=== PATIENT | female | born 1950 | race Caucasian/White ===

== ENCOUNTER 2016-11-21 16:31 | Observation (INO) | payer OTHER ==
[~2016-11-21] VITALS: Ht 152.4 cm; Wt 70.5 kg
[~2016-11-21 16:31] MED LIST: ACTOS30 MG PO; ACTOS45 MG PO; ADVIL,NUPRIN,M200 MG PO; ASPIR 8181 M1 PO; ASPIR-LOW81 M1 PO; ASPIRIN E.C.81 M1 PO; ATORVASTATIN CA80 MG PO; Advair HFA 115/21 IH; Aspirin E.C. PO; CEFTIN500 MG PO; CLEOCIN300 MG PO; CLINDAMYCIN HC300 MG PO; CLOTRIMAZOLE-BE15 GM TP; Diabeta,Micronase PO; FENOFIBRATE160 M1 PO; FLONASE16 G1 BOTH NARES; FLUCONAZOLE200 MG PO; FUROSEMIDE20 MG PO; Furosemide PO; GLUCOVANCE 51 TABLET PO; GLYBURIDE-METF1 EAC3 PO; HUMULIN 70100 UNIT/2 SC; HYCODAN SYRUP480 ML PO; HYDROCODON-ACE1 EAC7 PO; INSULIN SYRING1 EA11 SC; LEVEMIR FL100 UNIT/1 SC; LEVEMIR100 UNIT/2 SC; LIPITOR80 MG PO; LO-DOSE ASPIRIN81 M1 PO; LOFIBRA,TRIGLI160 MG PO; LOPRESSOR25 MG PO; LORATADINE10 M2 PO; LOW DOSE ASPIRI81 M1 PO; Lipitor PO; Lopressor PO; METOPROLOL TART25 MG PO; NICOTINE PATCH1 EAC2 TD; NORVASC5 MG PO; NOVOLIN,HU100 UNITS/ SC; NOVOLOG MI100 UNIT/M SC; NOVOLOG PE100 UNITS/ SC; PIOGLITAZONE HC30 MG PO; PROTONIX40 MG PO; TYLENOL EXTRA500 MG PO; ZANTAC75 MG PO; ZESTRIL,PRINIVI10 M1 PO; ZITHROMAX Z-PA250 MG PO; ZOFRAN4 MG PO; [UNRECOGNIZED DRUG - CODE] PO
[2016-11-21 17:14] LABS: HEMATOCRIT 31.7 % (36.0-46.0); MCH 27.2 PG (29.0-34.0); MCHC 31.9 G/DL (30.0-36.0); MCV 85.2 FL (83-99); MEAN PLAT.VOLUME 10.3 uM^3 (9.5-12.4); PLATELET COUNT 213 K/uL (156-360); RBC DIS.WIDTH-CV 14.4 % (11.8-14.6); RED BLOOD COUNT 3.72 M/uL (3.80-5.20); WHITE BLOOD COUNT 7.5 K/uL (4.1-10.2)
[2016-11-21 17:39] LABS: CHLORIDE 107 mEq/L (99-109); POTASSIUM 3.9 mEq/L (3.7-5.4); SODIUM 145 mEq/L (136-147)
[2016-11-21 17:41] LABS: GLUCOSE 114 mg/dL (70-99)
[2016-11-21 17:42] LABS: ANION GAP 10 MEQ/L (2-14)
[2016-11-21 17:45] LABS: GFR ESTIMATE (CALCULATED) 44 mL/min/; UREA NITROGEN (BUN) 27 mg/dL (9-23)
[2016-11-21 17:49] LABS: TROP-I INTERPRETATION NEGATIVE; TROPONIN-I 0.01 ng/mL (0.0-0.30)
[2016-11-21 20:16] LABS: ADD MIUA? YES; BILIRUBIN NEGATIVE; BLOOD SMALL; COLOR STRAW ((YELLOW)); GLUCOSE (STRIP) NEGATIVE; KETONES NEGATIVE; LEUKOCYTES MODERATE; NITRITE NEGATIVE; PROTEIN (STRIP) 100; SPECIFIC GRAVITY 1.009 (1.000-1.030); UROBILINOGEN 0.2 MG/DL (0.2-1.0)
[2016-11-21 20:34] LABS: BACTERIA NONE SEEN /HPF; EPITHELIAL CELLS RARE /HPF; MUCUS NONE SEEN /LPF; RED BLOOD CELLS 0-5 /HPF (0-5); UCUL ADDED? NO
[2016-11-21] MEDS ORDERED: METFORMIN HCL500 MG PO (22:46)
[2016-11-21] MEDS ORDERED: HUMULIN N100 UNITS/ SC (22:46)
[2016-11-22 00:43] VITALS: BP 169/70
[2016-11-22 01:01] LABS: POINT-OF-CARE METER ID UU13113700
[2016-11-22 01:08] LABS: TROP-I INTERPRETATION NEGATIVE; TROPONIN-I 0.01 ng/mL (0.0-0.30)
[2016-11-22 03:52] VITALS: BP 199/89
[2016-11-22 04:47] VITALS: BP 161/72
[2016-11-22 07:54] LABS: TROP-I INTERPRETATION NEGATIVE; TROPONIN-I 0.02 ng/mL (0.0-0.30)
[2016-11-22 09:41] VITALS: BP 178/81
[2016-11-22 12:17] VITALS: BP 143/67
[2016-11-22] MEDS ORDERED: FUROSEMIDE40 MG PO (13:39)
[2016-11-22] MEDS ORDERED: CEFTIN500 MG PO (13:39)
== END 2016-11-22 14:40 | disposition home or self-care (01) ==
LOC: EME 16:31 → EDOF 22:40 → 5WEST 23:22
PROVIDERS: Hospitalist; Nurse Practitioner Family; Physician Assistant
DX: R07.9 Chest pain, unspecified (principal); L03.116 Cellulitis of left lower limb; R60.0 Localized edema; I25.10 Atherosclerotic heart disease of native coronary artery without angina pectoris; Z95.1 Presence of aortocoronary bypass graft; E11.9 Type 2 diabetes mellitus without complications; I50.30 Unspecified diastolic (congestive) heart failure; N28.9 Disorder of kidney and ureter, unspecified; F17.210 Nicotine dependence, cigarettes, uncomplicated; Z79.4 Long term (current) use of insulin; Z79.82 Long term (current) use of aspirin
CPT/HCPCS: 71020; 80048; 81003; 82948; 83605; 83880; 84484; 85027; 87040; 93005; 93970; 99281; 99285; G0378; J1650; J1815; J1940; J7030

== ENCOUNTER 2017-01-18 16:43 | Emergency (ER) | payer OTHER ==
[~2017-01-18] VITALS: Ht 162.6 cm; Wt 65.0 kg
[~2017-01-18 16:43] MED LIST changes: +FUROSEMIDE40 MG PO; +HUMULIN N100 UNITS/ SC; +METFORMIN HCL500 MG PO
[2017-01-18 17:42] LABS: EOSINOPHIL (%) 0.5 % (0-5); HEMATOCRIT 30.2 % (36.0-46.0); IMMATURE GRANULOCYTE (%) 0.2 % (0.0-0.7); INSTRUMENT ABS NEUTROPHIL CT 4.4 K/uL; LYMPHOCYTE COUNT 1.2 K/uL (1.0-2.8); MCH 27.1 PG (29.0-34.0); MCHC 30.8 G/DL (30.0-36.0); MONOCYTE (%) 10.6 % (3-12); MONOCYTE COUNT 0.7 K/uL (0-0.8); NEUTROPHIL COUNT 4.4 K/uL (1.8-6.4); PLATELET COUNT 246 K/uL (156-360); RBC DIS.WIDTH-CV 15.9 % (11.8-14.6); RBC DIS.WIDTH-SD 51.5 % (39-53); RED BLOOD COUNT 3.43 M/uL (3.80-5.20); WHITE BLOOD COUNT 6.3 K/uL (4.1-10.2)
[2017-01-18 17:54] LABS: CHLORIDE 106 mEq/L (99-109); POTASSIUM 4.1 mEq/L (3.7-5.4); SODIUM 146 mEq/L (136-147)
[2017-01-18 17:56] LABS: GLUCOSE 162 mg/dL (70-99)
[2017-01-18 17:57] LABS: ANION GAP 11 MEQ/L (2-14)
[2017-01-18 17:58] LABS: TOTAL BILIRUBIN 0.6 mg/dL (0.0-1.0)
[2017-01-18 18:00] LABS: ALKALINE PHOSPHATASE 74 IU/L (3-129); GFR ESTIMATE (CALCULATED) 40 mL/min/
[2017-01-18 18:01] LABS: UREA NITROGEN (BUN) 45 mg/dL (9-23)
[2017-01-18 18:02] LABS: DIRECT BILIRUBIN 0.4 mg/dL (0.0-0.3)
[2017-01-18 18:03] LABS: LIPASE 58 U/L (1.0-51.0)
[2017-01-18] MEDS ORDERED: CLEOCIN300 MG PO (21:04)
[2017-01-18 21:58] VITALS: BP 169/74
== END 2017-01-18 22:03 | disposition home or self-care (01) ==
LOC: EME 16:43
PROVIDERS: Emergency Medicine
DX: L03.311 Cellulitis of abdominal wall (principal); E11.9 Type 2 diabetes mellitus without complications; E78.5 Hyperlipidemia, unspecified; I10 Essential (primary) hypertension; I25.2 Old myocardial infarction; Z95.1 Presence of aortocoronary bypass graft; Z79.84 Long term (current) use of oral hypoglycemic drugs; Z79.82 Long term (current) use of aspirin; Z79.4 Long term (current) use of insulin; F17.200 Nicotine dependence, unspecified, uncomplicated
CPT/HCPCS: 74177; 80048; 80076; 83605; 83690; 85025; 87040; 99281; 99285; J2405; J2543; J7030

== ENCOUNTER 2017-01-28 00:48 | Inpatient (IN) | payer OTHER ==
[~2017-01-28] VITALS: Ht 152.4 cm; Wt 66.0 kg
[2017-01-28 01:25] LABS: EOSINOPHIL (%) 1.1 % (0-5); EOSINOPHIL COUNT 0.1 K/uL (0-0.3); HEMATOCRIT 28.3 % (36.0-46.0); IMMATURE GRANULOCYTE (%) 0.2 % (0.0-0.7); INSTRUMENT ABS NEUTROPHIL CT 6.6 K/uL; LYMPHOCYTE COUNT 1.1 K/uL (1.0-2.8); MCH 26.8 PG (29.0-34.0); MCHC 31.1 G/DL (30.0-36.0); MCV 86.3 FL (83-99); MEAN PLAT.VOLUME 11.1 uM^3 (9.5-12.4); MONOCYTE (%) 11.4 % (3-12); NEUTROPHIL (%) 74.8 % (45-76); NEUTROPHIL COUNT 6.6 K/uL (1.8-6.4); PLATELET COUNT 229 K/uL (156-360); RBC DIS.WIDTH-SD 53.2 % (39-53); RED BLOOD COUNT 3.28 M/uL (3.80-5.20); WHITE BLOOD COUNT 8.9 K/uL (4.1-10.2)
[2017-01-28 01:33] LABS: CHLORIDE 105 mEq/L (99-109); SODIUM 142 mEq/L (136-147)
[2017-01-28 01:35] LABS: GLUCOSE 51 mg/dL (70-99)
[2017-01-28 01:36] LABS: ANION GAP 13 MEQ/L (2-14)
[2017-01-28 01:39] LABS: GFR ESTIMATE (CALCULATED) 21 mL/min/
[2017-01-28 01:40] LABS: UREA NITROGEN (BUN) 51 mg/dL (9-23)
[2017-01-28 01:43] LABS: TROP-I INTERPRETATION NEGATIVE; TROPONIN-I 0.04 ng/mL (0.0-0.30)
[2017-01-28 08:20] VITALS: BP 128/76
[2017-01-28 13:33] VITALS: BP 124/78
[2017-01-28 15:53] VITALS: BP 142/68
[2017-01-28 19:00] VITALS: BP 147/69
[2017-01-28 22:48] VITALS: BP 146/58
[2017-01-29] VITALS (7 sets, daily range): BP systolic 110–150; BP diastolic 59–70
[2017-01-29 08:57] LABS: EOSINOPHIL (%) 1.1 % (0-5); EOSINOPHIL COUNT 0.1 K/uL (0-0.3); HEMATOCRIT 30.7 % (36.0-46.0); IMMATURE GRANULOCYTE (%) 0.4 % (0.0-0.7); INSTRUMENT ABS NEUTROPHIL CT 5.3 K/uL; LYMPHOCYTE COUNT 1.1 K/uL (1.0-2.8); MCHC 31.3 G/DL (30.0-36.0); MCV 86.2 FL (83-99); MEAN PLAT.VOLUME 11.5 uM^3 (9.5-12.4); MONOCYTE (%) 12.6 % (3-12); NEUTROPHIL (%) 70.4 % (45-76); NEUTROPHIL COUNT 5.3 K/uL (1.8-6.4); PLATELET COUNT 208 K/uL (156-360); RBC DIS.WIDTH-CV 16.8 % (11.8-14.6); RBC DIS.WIDTH-SD 52.9 % (39-53); RED BLOOD COUNT 3.56 M/uL (3.80-5.20); WHITE BLOOD COUNT 7.6 K/uL (4.1-10.2)
[2017-01-29 09:11] LABS: ANION GAP 10 MEQ/L (2-14); CHLORIDE 99 MEQ/L (99-109); GFR ESTIMATE (CALCULATED) 22 mL/min/; POTASSIUM 4.7 MEQ/L (3.7-5.4); SAMPLE HEMOLYSIS CHECK 0; SAMPLE ICTERIC CHECK 0; SAMPLE LIPEMIA CHECK 0; SODIUM 138 MEQ/L (136-147); UREA NITROGEN (BUN) 50 mg/dL (9-23)
[2017-01-29 09:17] LABS: GLUCOSE 111 mg/dL (70-99)
[2017-01-29] MEDS ORDERED: FUROSEMIDE20 MG PO (11:36)
[2017-01-29] MEDS ORDERED: BACTRIM,SEPT1 TABLET PO (11:38)
[2017-01-29] MEDS ORDERED: OINTMENT (11:38)
[2017-01-29] MEDS ORDERED: BACTROBAN OINTM22 GM TP (11:40)
[2017-01-30 03:24] VITALS: BP 131/67
[2017-01-30 07:00] VITALS: BP 128/76
[2017-01-30 08:47] LABS: ANION GAP 8 MEQ/L (2-14); CHLORIDE 101 MEQ/L (99-109); GFR ESTIMATE (CALCULATED) 21 mL/min/; GLUCOSE 92 mg/dL (70-99); HDL CHOLESTEROL 17 MG/DL (Desirable>=50); LDL CHOLESTEROL 22 mg/dL (Desirable<100); NON-HDL CHOLESTEROL 35 mg/dL (Desirable<160); POTASSIUM 5.6 MEQ/L (3.7-5.4); SAMPLE HEMOLYSIS CHECK 0; SAMPLE ICTERIC CHECK 0; SAMPLE LIPEMIA CHECK 0; SODIUM 139 MEQ/L (136-147); TOTAL CHOLESTEROL 52 mg/dL (Desirable<200); TRIGLYCERIDES 67 MG/DL (Normal: <150); UREA NITROGEN (BUN) 60 mg/dL (9-23)
[2017-01-30 11:27] VITALS: BP 131/59
[2017-01-30 15:39] VITALS: BP 150/64
[2017-01-30 17:23] LABS: POINT-OF-CARE METER ID UU13113725
[2017-01-30 19:16] VITALS: BP 154/67
[2017-01-30 22:43] VITALS: BP 157/75
[2017-01-31 03:26] VITALS: BP 162/74
[2017-01-31 07:28] VITALS: BP 191/75
[2017-01-31 07:47] LABS: ANION GAP 8 MEQ/L (2-14); CHLORIDE 101 MEQ/L (99-109); GFR ESTIMATE (CALCULATED) 24 mL/min/; GLUCOSE 82 mg/dL (70-99); POTASSIUM 4.3 MEQ/L (3.7-5.4); SAMPLE HEMOLYSIS CHECK 0; SAMPLE ICTERIC CHECK 0; SAMPLE LIPEMIA CHECK 0; SODIUM 142 MEQ/L (136-147); UREA NITROGEN (BUN) 54 mg/dL (9-23); URIC ACID 9.7 mg/dL (3.1-9.2)
[2017-01-31 11:40] VITALS: BP 187/74
[2017-01-31 15:34] VITALS: BP 164/71
[2017-01-31 18:08] LABS: D-DIMER ELISA 0.82 mg/L FEU (< 0.57)
[2017-01-31 19:03] VITALS: BP 146/71
[2017-01-31 20:42] LABS: POINT-OF-CARE METER ID UU13113725
[2017-01-31 22:31] VITALS: BP 146/71
[2017-02-01 03:29] VITALS: BP 139/65
[2017-02-01 05:43] LABS: POINT-OF-CARE METER ID UU13113725
[2017-02-01 06:53] VITALS: BP 159/69
[2017-02-01 08:19] LABS: ANION GAP 8 MEQ/L (2-14); CHLORIDE 100 MEQ/L (99-109); GFR ESTIMATE (CALCULATED) 34 mL/min/; GLUCOSE 164 mg/dL (70-99); POTASSIUM 4.4 MEQ/L (3.7-5.4); SAMPLE HEMOLYSIS CHECK 0; SAMPLE ICTERIC CHECK 0; SAMPLE LIPEMIA CHECK 0; SODIUM 142 MEQ/L (136-147); UREA NITROGEN (BUN) 53 mg/dL (9-23)
[2017-02-01 09:45] LABS: LACTATE DEHYDROGENASE 225 IU/L (20-246)
[2017-02-01 10:21] VITALS: BP 130/62
[2017-02-01 15:35] VITALS: BP 164/68
[2017-02-01 16:36] LABS: POINT-OF-CARE METER ID UU13113725
[2017-02-01 18:58] VITALS: BP 127/62
[2017-02-01 22:24] VITALS: BP 148/89
[2017-02-02 02:32] VITALS: BP 179/78
[2017-02-02 06:15] LABS: POINT-OF-CARE METER ID UU13113725
[2017-02-02 06:56] VITALS: BP 178/78
[2017-02-02 07:48] LABS: EOSINOPHIL (%) 2.1 % (0-5); EOSINOPHIL COUNT 0.2 K/uL (0-0.3); HEMATOCRIT 31.8 % (36.0-46.0); IMMATURE GRANULOCYTE (%) 0.4 % (0.0-0.7); INSTRUMENT ABS NEUTROPHIL CT 5.5 K/uL; LYMPHOCYTE COUNT 1.2 K/uL (1.0-2.8); MCH 27.5 PG (29.0-34.0); MCHC 32.4 G/DL (30.0-36.0); MCV 84.8 FL (83-99); MEAN PLAT.VOLUME 10.8 uM^3 (9.5-12.4); MONOCYTE (%) 13.2 % (3-12); MONOCYTE COUNT 1.1 K/uL (0-0.8); NEUTROPHIL (%) 68.7 % (45-76); NEUTROPHIL COUNT 5.5 K/uL (1.8-6.4); PLATELET COUNT 230 K/uL (156-360); RBC DIS.WIDTH-CV 16.9 % (11.8-14.6); RBC DIS.WIDTH-SD 51.8 % (39-53); RED BLOOD COUNT 3.75 M/uL (3.80-5.20)
[2017-02-02 08:03] LABS: INTER. NORMALIZED RATIO 1.2; PROTHROMBIN TIME 12.7 (9.2-11.2); PTT 28.5 (25-32)
[2017-02-02 08:20] LABS: ALKALINE PHOSPHATASE 48 IU/L (3-129); ANION GAP 7 MEQ/L (2-14); CHLORIDE 98 MEQ/L (99-109); GFR ESTIMATE (CALCULATED) 40 mL/min/; GLUCOSE 122 mg/dL (70-99); POTASSIUM 3.8 MEQ/L (3.7-5.4); SAMPLE HEMOLYSIS CHECK 0; SAMPLE ICTERIC CHECK 0; SAMPLE LIPEMIA CHECK 0; SODIUM 141 MEQ/L (136-147); TOTAL BILIRUBIN 0.7 MG/DL (0.0-1.0); UREA NITROGEN (BUN) 45 mg/dL (9-23)
[2017-02-02 08:37] LABS: Estimated Average Glucose 140 mg/dL (70-123); HEMOGLOBIN A1c (GLYCOHEMOGLOB) 6.5 % HGB (Below 5.7)
[2017-02-02 10:44] LABS: TYPE OF FLUID PLEURAL
[2017-02-02 11:09] LABS: BODY FLUID RBC'S 2000 /MM^3 (0-100); BODY FLUID WBC'S 1846 /MM^3 (0-500)
[2017-02-02 11:31] LABS: BODY FLUID EOSINOPHILS 6 % (0-25); MONO RAW COUNT 10; MONONUCLEAR WBC'S 10 %; POLY RAW COUNT 84; POLYNUCLEAR WBC'S 84 % (0-25)
[2017-02-02 12:02] LABS: BODY FLUID LDH 130 IU/L; BODY FLUID PROTEIN < 3.0 G/DL
[2017-02-02 12:07] VITALS: BP 145/64
[2017-02-02 15:15] VITALS: BP 154/69
[2017-02-02 16:45] LABS: POINT-OF-CARE METER ID UU13113725
[2017-02-02 19:04] VITALS: BP 158/62
[2017-02-02 22:43] VITALS: BP 138/64
[2017-02-03 02:40] VITALS: BP 160/54
[2017-02-03 06:55] VITALS: BP 188/81
[2017-02-03 07:14] LABS: EOSINOPHIL COUNT 0.3 K/uL (0-0.3); HEMATOCRIT 32.1 % (36.0-46.0); IMMATURE GRANULOCYTE (%) 0.3 % (0.0-0.7); INSTRUMENT ABS NEUTROPHIL CT 4.4 K/uL; LYMPHOCYTE COUNT 1.5 K/uL (1.0-2.8); MCHC 32.1 G/DL (30.0-36.0); MEAN PLAT.VOLUME 10.7 uM^3 (9.5-12.4); MONOCYTE (%) 13.8 % (3-12); NEUTROPHIL (%) 60.8 % (45-76); NEUTROPHIL COUNT 4.4 K/uL (1.8-6.4); PLATELET COUNT 235 K/uL (156-360); RBC DIS.WIDTH-CV 16.8 % (11.8-14.6); RBC DIS.WIDTH-SD 50.6 % (39-53); RED BLOOD COUNT 3.82 M/uL (3.80-5.20); WHITE BLOOD COUNT 7.2 K/uL (4.1-10.2)
[2017-02-03 07:40] LABS: ALKALINE PHOSPHATASE 44 IU/L (3-129); ANION GAP 7 MEQ/L (2-14); CHLORIDE 98 MEQ/L (99-109); GFR ESTIMATE (CALCULATED) 48 mL/min/; GLUCOSE 141 mg/dL (70-99); POTASSIUM 3.8 MEQ/L (3.7-5.4); SAMPLE HEMOLYSIS CHECK 0; SAMPLE ICTERIC CHECK 0; SAMPLE LIPEMIA CHECK 0; SODIUM 142 MEQ/L (136-147); TOTAL BILIRUBIN 0.7 MG/DL (0.0-1.0); UREA NITROGEN (BUN) 42 mg/dL (9-23)
[2017-02-03 11:39] VITALS: BP 128/61
[2017-02-03 15:21] VITALS: BP 147/69
[2017-02-03 15:48] LABS: POINT-OF-CARE METER ID UU13113725
[2017-02-03 19:16] VITALS: BP 164/72
[2017-02-03 22:20] VITALS: BP 155/72
[2017-02-04 03:23] VITALS: BP 163/67
[2017-02-04 06:51] LABS: EOSINOPHIL (%) 5.4 % (0-5); EOSINOPHIL COUNT 0.4 K/uL (0-0.3); HEMATOCRIT 31.4 % (36.0-46.0); IMMATURE GRANULOCYTE (%) 0.3 % (0.0-0.7); INSTRUMENT ABS NEUTROPHIL CT 4.3 K/uL; LYMPHOCYTE COUNT 1.8 K/uL (1.0-2.8); MCH 27.1 PG (29.0-34.0); MCHC 32.5 G/DL (30.0-36.0); MCV 83.5 FL (83-99); MEAN PLAT.VOLUME 10.8 uM^3 (9.5-12.4); MONOCYTE (%) 12.4 % (3-12); MONOCYTE COUNT 0.9 K/uL (0-0.8); NEUTROPHIL (%) 57.5 % (45-76); NEUTROPHIL COUNT 4.3 K/uL (1.8-6.4); PLATELET COUNT 220 K/uL (156-360); RBC DIS.WIDTH-CV 16.7 % (11.8-14.6); RBC DIS.WIDTH-SD 50.1 % (39-53); RED BLOOD COUNT 3.76 M/uL (3.80-5.20); WHITE BLOOD COUNT 7.4 K/uL (4.1-10.2)
[2017-02-04 07:06] VITALS: BP 166/67
[2017-02-04 07:18] LABS: ANION GAP 9 MEQ/L (2-14); CHLORIDE 98 MEQ/L (99-109); GFR ESTIMATE (CALCULATED) 48 mL/min/; GLUCOSE 115 mg/dL (70-99); POTASSIUM 3.8 MEQ/L (3.7-5.4); SAMPLE HEMOLYSIS CHECK 0; SAMPLE ICTERIC CHECK 0; SAMPLE LIPEMIA CHECK 0; SODIUM 140 MEQ/L (136-147); UREA NITROGEN (BUN) 47 mg/dL (9-23)
[2017-02-04 10:52] LABS: POINT-OF-CARE METER ID UU13113725
[2017-02-04] MEDS ORDERED: DOCUSATE SODIU100 MG PO (11:31)
[2017-02-04] MEDS ORDERED: KETOCONAZOLE60 GM TP (11:35)
[2017-02-04] MEDS ORDERED: METOPROLOL TART25 MG PO (11:35)
[2017-02-04] MEDS ORDERED: ENDOCET 5-3251 EACH PO (11:35)
[2017-02-04] MEDS ORDERED: ZINC OXIDE56.7 GM TP (11:35)
[2017-02-04] MEDS ORDERED: NOVOLOG PE100 UNITS/ SC (11:35)
[2017-02-04] MEDS ORDERED: FUROSEMIDE40 MG PO (11:35)
[2017-02-04] MEDS ORDERED: LISINOPRIL5 MG PO (11:35)
[2017-02-04] MEDS ORDERED: LEVEMIR100 UNIT/2 SC (11:35)
[2017-02-04 12:00] VITALS: BP 137/65
== END 2017-02-04 17:13 | disposition home health service (06) | DRG 682 ==
LOC: EME → EDBD 00:48 → EME 00:48 → 5EAST 03:53 → EDOF 03:53 → 5EAST 07:39
PROVIDERS: Emergency Medicine; Hospitalist; Internal Medicine; Internal Medicine Nephrology; Radiology Diagnostic Radiology
PROC: 0H97XZZ Drainage of Abdomen Skin, External Approach (ICD-10-PCS; principal; 2017-01-29)
PROC: 0W993ZZ Drainage of Right Pleural Cavity, Percutaneous Approach (ICD-10-PCS; 2017-02-02)
DX: N17.9 Acute kidney failure, unspecified (principal); I50.43 Acute on chronic combined systolic (congestive) and diastolic (congestive) heart failure; J96.01 Acute respiratory failure with hypoxia; I25.810 Atherosclerosis of coronary artery bypass graft(s) without angina pectoris; D63.1 Anemia in chronic kidney disease; J90 Pleural effusion, not elsewhere classified; I13.0 Hypertensive heart and chronic kidney disease with heart failure and stage 1 through stage 4 chronic kidney disease, or unspecified chronic kidney disease; E11.40 Type 2 diabetes mellitus with diabetic neuropathy, unspecified; L02.221 Furuncle of abdominal wall; N18.3 Chronic kidney disease, stage 3 (moderate); I73.9 Peripheral vascular disease, unspecified; L02.211 Cutaneous abscess of abdominal wall; E78.5 Hyperlipidemia, unspecified; B37.9 Candidiasis, unspecified; K21.9 Gastro-esophageal reflux disease without esophagitis; R21 Rash and other nonspecific skin eruption; F17.210 Nicotine dependence, cigarettes, uncomplicated; R60.0 Localized edema; I25.10 Atherosclerotic heart disease of native coronary artery without angina pectoris; D63.8 Anemia in other chronic diseases classified elsewhere; E11.42 Type 2 diabetes mellitus with diabetic polyneuropathy; I70.0 Atherosclerosis of aorta; L97.811 Non-pressure chronic ulcer of other part of right lower leg limited to breakdown of skin; E11.22 Type 2 diabetes mellitus with diabetic chronic kidney disease; Z85.42 Personal history of malignant neoplasm of other parts of uterus; Z79.4 Long term (current) use of insulin; I25.2 Old myocardial infarction; Z95.1 Presence of aortocoronary bypass graft; Z79.82 Long term (current) use of aspirin
CPT/HCPCS: 71010; 71020; 76770; 78582; 80048; 80053; 80061; 80069; 81003; 82043; 82570; 82945; 82948; 83036; 83615; 83615 91; 83880; 84100; 84157; 84300; 84484; 84550; 85025; 85379; 85610; 85730; 87070; 87075; 87205; 88108; 88305; 89051; 93005; 93306; 93925; 93970; 94799; 99202; 99281; 99285; A6212; A6260; A9540; A9567; J1644; J1815; J1940; J2405

== ENCOUNTER 2017-04-19 20:57 | Inpatient (IN) | payer OTHER ==
[~2017-04-19] VITALS: Ht 162.6 cm; Wt 65.5 kg
[~2017-04-19 20:57] MED LIST changes: +BACTRIM,SEPT1 TABLET PO; +BACTROBAN OINTM22 GM TP; +DOCUSATE SODIU100 MG PO; +ENDOCET 5-3251 EACH PO; +KETOCONAZOLE60 GM TP; +LISINOPRIL5 MG PO; +OINTMENT; +ZINC OXIDE56.7 GM TP
[2017-04-19 23:32] LABS: HEMATOCRIT 29.6 % (36.0-46.0); MCH 27.8 PG (29.0-34.0); MCHC 33.1 G/DL (30.0-36.0); MCV 84.1 FL (83-99); MEAN PLAT.VOLUME 9.4 uM^3 (9.5-12.4); PLATELET COUNT 174 K/uL (156-360); RBC DIS.WIDTH-CV 14.8 % (11.8-14.6); RBC DIS.WIDTH-SD 45.5 % (39-53); RED BLOOD COUNT 3.52 M/uL (3.80-5.20); WHITE BLOOD COUNT 9.1 K/uL (4.1-10.2)
[2017-04-19 23:41] LABS: CHLORIDE 101 mEq/L (99-109); POTASSIUM 3.8 mEq/L (3.7-5.4); SODIUM 136 mEq/L (136-147)
[2017-04-19 23:42] LABS: GLUCOSE 165 mg/dL (70-99)
[2017-04-19 23:44] LABS: ANION GAP 9 MEQ/L (2-14)
[2017-04-19 23:46] LABS: GFR ESTIMATE (CALCULATED) 53 mL/min/
[2017-04-19 23:47] LABS: UREA NITROGEN (BUN) 26 mg/dL (9-23)
[2017-04-20 00:28] LABS: EOSINOPHIL (%) 0.6 % (0-5); EOSINOPHIL COUNT 0.1 K/uL (0-0.3); IMMATURE GRANULOCYTE (%) 0.3 % (0.0-0.7); LYMPHOCYTE COUNT 1.1 K/uL (1.0-2.8); MONOCYTE (%) 10.5 % (3-12); NEUTROPHIL (%) 76.7 % (45-76)
[2017-04-20] MEDS ORDERED: FUROSEMIDE40 MG PO (00:39)
[2017-04-20] MEDS ORDERED: NOVOLOG PE100 UNITS/ SC (00:40)
[2017-04-20 00:51] LABS: TOTAL BILIRUBIN 0.9 mg/dL (0.0-1.0)
[2017-04-20 00:52] LABS: ALKALINE PHOSPHATASE 125 IU/L (3-129)
[2017-04-20 00:55] LABS: DIRECT BILIRUBIN 0.5 mg/dL (0.0-0.3)
[2017-04-20 00:56] LABS: LIPASE 21 U/L (1.0-51.0)
[2017-04-20 10:52] LABS: POINT-OF-CARE METER ID UU13113702
[2017-04-20 13:59] VITALS: BP 156/72
[2017-04-21 00:01] VITALS: BP 156/84
[2017-04-21 07:06] LABS: HEMATOCRIT 27.4 % (36.0-46.0); MCHC 33.2 G/DL (30.0-36.0); MCV 84.3 FL (83-99); MEAN PLAT.VOLUME 10.3 uM^3 (9.5-12.4); NRBC (%) 0.2 /100 WBC (0-0); PLATELET COUNT 176 K/uL (156-360); RBC DIS.WIDTH-CV 14.8 % (11.8-14.6); RBC DIS.WIDTH-SD 45.7 % (39-53); RED BLOOD COUNT 3.25 M/uL (3.80-5.20)
[2017-04-21 07:19] LABS: POINT-OF-CARE METER ID UU14188625
[2017-04-21 07:34] LABS: ANION GAP 8 MEQ/L (2-14); CHLORIDE 107 MEQ/L (99-109); GFR ESTIMATE (CALCULATED) 53 mL/min/; POTASSIUM 3.6 MEQ/L (3.7-5.4); SAMPLE HEMOLYSIS CHECK 0; SAMPLE ICTERIC CHECK 0; SAMPLE LIPEMIA CHECK 0; SODIUM 140 MEQ/L (136-147); UREA NITROGEN (BUN) 24 mg/dL (9-23)
[2017-04-21 07:39] LABS: GLUCOSE 116 mg/dL (70-99)
[2017-04-21 07:49] VITALS: BP 198/78
[2017-04-21 11:33] LABS: POINT-OF-CARE METER ID UU14188625
[2017-04-21 15:24] VITALS: BP 160/84
[2017-04-21 16:44] LABS: POINT-OF-CARE METER ID UU13113717
[2017-04-21 21:44] LABS: POINT-OF-CARE METER ID UU14174225
[2017-04-21 23:45] VITALS: BP 164/59
[2017-04-22 08:07] VITALS: BP 161/95
[2017-04-22 11:13] LABS: ANION GAP 10 MEQ/L (2-14); CHLORIDE 102 MEQ/L (99-109); GFR ESTIMATE (CALCULATED) 53 mL/min/; GLUCOSE 106 mg/dL (70-99); SAMPLE HEMOLYSIS CHECK 0; SAMPLE ICTERIC CHECK 0; SAMPLE LIPEMIA CHECK 0; SODIUM 138 MEQ/L (136-147); UREA NITROGEN (BUN) 25 mg/dL (9-23)
[2017-04-22 11:14] LABS: POTASSIUM 4.6 MEQ/L (3.7-5.4)
[2017-04-22 15:04] VITALS: BP 163/79
[2017-04-22 21:29] LABS: POINT-OF-CARE METER ID UU14174225
[2017-04-23 00:42] VITALS: BP 175/79
[2017-04-23 07:27] LABS: POINT-OF-CARE METER ID UU14174225
[2017-04-23 07:48] VITALS: BP 228/94
[2017-04-23 09:49] VITALS: BP 191/79
[2017-04-23 12:03] LABS: POINT-OF-CARE METER ID UU14174225
[2017-04-23 12:39] VITALS: BP 191/80
[2017-04-23 15:13] VITALS: BP 142/65
[2017-04-23 16:55] LABS: POINT-OF-CARE METER ID UU14174225
[2017-04-23 21:15] LABS: POINT-OF-CARE METER ID UU14188625
[2017-04-23 23:55] VITALS: BP 156/61
[2017-04-24 07:58] LABS: POINT-OF-CARE METER ID UU14174225
[2017-04-24 08:03] VITALS: BP 175/70
[2017-04-24] MEDS ORDERED: FLUCONAZOLE200 MG PO (08:50)
[2017-04-24] MEDS ORDERED: BACTRIM,SEPT1 TABLET PO (08:50)
[2017-04-24] MEDS ORDERED: CIPRO500 MG PO (08:50)
[2017-04-24] MEDS ORDERED: LISINOPRIL10 MG PO (08:50)
[2017-04-24] MEDS ORDERED: CLONIDINE HCL0.1 MG PO (08:50)
[2017-04-24] MEDS ORDERED: LEVEMIR100 UNIT/2 SC (08:50)
[2017-04-24 08:55] VITALS: BP 188/47
[2017-04-24 12:23] LABS: POINT-OF-CARE METER ID UU14174225
[2017-04-24 12:27] VITALS: BP 170/61
[2017-04-24 13:46] VITALS: BP 137/52
== END 2017-04-24 15:34 | disposition home health service (06) | DRG 603 ==
LOC: EME 20:57 → 5SOUTH 04-20 01:12 → EDOF 04-20 01:12 → 5SOUTH 04-20 13:50
PROVIDERS: Hospitalist; Internal Medicine; Physician Assistant
DX: L03.311 Cellulitis of abdominal wall (principal); L03.116 Cellulitis of left lower limb; L03.115 Cellulitis of right lower limb; L03.314 Cellulitis of groin; L30.4 Erythema intertrigo; M79.3 Panniculitis, unspecified; I13.0 Hypertensive heart and chronic kidney disease with heart failure and stage 1 through stage 4 chronic kidney disease, or unspecified chronic kidney disease; I50.9 Heart failure, unspecified; E11.22 Type 2 diabetes mellitus with diabetic chronic kidney disease; N18.3 Chronic kidney disease, stage 3 (moderate); E78.5 Hyperlipidemia, unspecified; I25.10 Atherosclerotic heart disease of native coronary artery without angina pectoris; F17.210 Nicotine dependence, cigarettes, uncomplicated; J45.909 Unspecified asthma, uncomplicated; K21.9 Gastro-esophageal reflux disease without esophagitis; F31.9 Bipolar disorder, unspecified; E66.9 Obesity, unspecified; Z79.4 Long term (current) use of insulin; Z79.82 Long term (current) use of aspirin; Z85.42 Personal history of malignant neoplasm of other parts of uterus; Z95.1 Presence of aortocoronary bypass graft; I25.2 Old myocardial infarction; Z68.24 Body mass index [BMI] 24.0-24.9, adult
CPT/HCPCS: 74177; 80048; 80076; 80202; 82948; 83605; 83690; 85025; 85027; 87040; 87070; 87075; 87076; 87205; 93005; 99281; 99285; A6260; J0360; J0692; J1644; J1815; J1885; J2270; J2543; J3010; J3370; J7030; J7050

== ENCOUNTER 2017-05-18 14:51 | Inpatient (IN) | payer OTHER ==
[~2017-05-18] VITALS: Ht 152.4 cm; Wt 54.8 kg
[~2017-05-18 14:51] MED LIST changes: +CIPRO500 MG PO; +CLONIDINE HCL0.1 MG PO; +LISINOPRIL10 MG PO
[2017-05-18 18:40] LABS: HEMATOCRIT 14.6 % (36.0-46.0); MCH 28.6 PG (29.0-34.0); MCHC 32.9 G/DL (30.0-36.0); MCV 86.9 FL (83-99); MEAN PLAT.VOLUME 10.2 uM^3 (9.5-12.4); RBC DIS.WIDTH-CV 14.8 % (11.8-14.6); RBC DIS.WIDTH-SD 46.1 % (39-53); WHITE BLOOD COUNT 11.6 K/uL (4.1-10.2)
[2017-05-18 18:41] LABS: CHLORIDE 103 mEq/L (99-109); PLATELET COUNT 272 K/uL (156-360); POTASSIUM 5.1 mEq/L (3.7-5.4); RED BLOOD COUNT 1.68 M/uL (3.80-5.20); SODIUM 138 mEq/L (136-147)
[2017-05-18 18:43] LABS: GLUCOSE 103 mg/dL (70-99)
[2017-05-18 18:44] LABS: ANION GAP 18 MEQ/L (2-14)
[2017-05-18 18:45] LABS: TOTAL BILIRUBIN 0.5 mg/dL (0.0-1.0)
[2017-05-18 18:47] LABS: ALKALINE PHOSPHATASE 107 IU/L (3-129); GFR ESTIMATE (CALCULATED) > 59 mL/min/
[2017-05-18 18:48] LABS: UREA NITROGEN (BUN) 38 mg/dL (9-23)
[2017-05-18] MEDS ORDERED: METOPROLOL TART75 MG PO (19:03)
[2017-05-18] MEDS ORDERED: LANTUS 3 M100 UNITS1 SC (19:04)
[2017-05-18] MEDS ORDERED: ZESTRIL5 MG PO (19:04)
[2017-05-18 19:32] LABS: PLAT.SUFFICIENCY ADEQUATE
[2017-05-18 19:43] LABS: MCH 28.3 PG (29.0-34.0); MCHC 33.5 G/DL (30.0-36.0); MCV 84.7 FL (83-99); MEAN PLAT.VOLUME 9.9 uM^3 (9.5-12.4); RBC DIS.WIDTH-CV 14.9 % (11.8-14.6); RBC DIS.WIDTH-SD 45.8 % (39-53); WHITE BLOOD COUNT 8.2 K/uL (4.1-10.2)
[2017-05-18 20:13] LABS: PLATELET COUNT 187 K/uL (156-360); RED BLOOD COUNT 3.07 M/uL (3.80-5.20)
[2017-05-19 00:44] VITALS: BP 193/80
[2017-05-19 00:53] VITALS: BP 198/80
[2017-05-19 01:09] LABS: POINT-OF-CARE METER ID UU14188577
[2017-05-19 06:08] LABS: HEMATOCRIT 26.1 % (36.0-46.0); MCH 28.2 PG (29.0-34.0); MCHC 32.6 G/DL (30.0-36.0); MCV 86.7 FL (83-99); MEAN PLAT.VOLUME 9.8 uM^3 (9.5-12.4); PLATELET COUNT 176 K/uL (156-360); RBC DIS.WIDTH-SD 47.2 % (39-53); RED BLOOD COUNT 3.01 M/uL (3.80-5.20); WHITE BLOOD COUNT 7.6 K/uL (4.1-10.2)
[2017-05-19 06:28] LABS: POINT-OF-CARE METER ID UU14188577
[2017-05-19 07:00] LABS: ALKALINE PHOSPHATASE 115 IU/L (3-129); ANION GAP 6 MEQ/L (2-14); CHLORIDE 110 MEQ/L (99-109); GFR ESTIMATE (CALCULATED) > 59 mL/min/; GLUCOSE 104 mg/dL (70-99); POTASSIUM 4.2 MEQ/L (3.7-5.4); SAMPLE HEMOLYSIS CHECK 0; SAMPLE ICTERIC CHECK 0; SAMPLE LIPEMIA CHECK 0; SODIUM 144 MEQ/L (136-147); TOTAL BILIRUBIN 0.7 MG/DL (0.0-1.0); UREA NITROGEN (BUN) 30 mg/dL (9-23)
[2017-05-19 08:23] VITALS: BP 145/65
[2017-05-19 12:00] VITALS: BP 162/67
[2017-05-19 12:05] LABS: POINT-OF-CARE METER ID UU14188577
[2017-05-19 13:59] LABS: PREALBUMIN 10.9 mg/dL (10-40)
[2017-05-19 16:01] LABS: POINT-OF-CARE METER ID UU14188577
[2017-05-19 16:04] VITALS: BP 123/69
[2017-05-19 19:43] VITALS: BP 132/81
[2017-05-20 00:27] VITALS: BP 183/74
[2017-05-20 01:10] LABS: POINT-OF-CARE METER ID UU14188577
[2017-05-20 03:08] VITALS: BP 150/70
[2017-05-20 03:54] VITALS: BP 149/66
[2017-05-20 07:10] LABS: MCH 27.8 PG (29.0-34.0); MCV 86.8 FL (83-99); PLATELET COUNT 151 K/uL (156-360); RBC DIS.WIDTH-CV 15.2 % (11.8-14.6); RBC DIS.WIDTH-SD 48.2 % (39-53); RED BLOOD COUNT 2.88 M/uL (3.80-5.20); WHITE BLOOD COUNT 6.3 K/uL (4.1-10.2)
[2017-05-20 07:36] LABS: ANION GAP 8 MEQ/L (2-14); CHLORIDE 108 MEQ/L (99-109); GFR ESTIMATE (CALCULATED) > 59 mL/min/; GLUCOSE 80 mg/dL (70-99); POTASSIUM 3.8 MEQ/L (3.7-5.4); SAMPLE HEMOLYSIS CHECK 0; SAMPLE ICTERIC CHECK 0; SAMPLE LIPEMIA CHECK 0; SODIUM 143 MEQ/L (136-147); UREA NITROGEN (BUN) 27 mg/dL (9-23)
[2017-05-20 07:49] VITALS: BP 158/68
[2017-05-20 11:19] LABS: POINT-OF-CARE METER ID UU14117124
[2017-05-20 15:29] VITALS: BP 107/79
[2017-05-20 21:16] LABS: POINT-OF-CARE METER ID UU14188577
[2017-05-21] VITALS (8 sets, daily range): BP systolic 115–202; BP diastolic 56–78
[2017-05-21 06:44] LABS: HEMATOCRIT 24.6 % (36.0-46.0); MCH 28.8 PG (29.0-34.0); MCHC 33.3 G/DL (30.0-36.0); MCV 86.3 FL (83-99); MEAN PLAT.VOLUME 10.4 uM^3 (9.5-12.4); PLATELET COUNT 160 K/uL (156-360); RED BLOOD COUNT 2.85 M/uL (3.80-5.20); WHITE BLOOD COUNT 7.4 K/uL (4.1-10.2)
[2017-05-21 07:16] LABS: ANION GAP 9 MEQ/L (2-14); CHLORIDE 105 MEQ/L (99-109); GFR ESTIMATE (CALCULATED) 48 mL/min/; GLUCOSE 80 mg/dL (70-99); POTASSIUM 3.8 MEQ/L (3.7-5.4); SAMPLE HEMOLYSIS CHECK 0; SAMPLE ICTERIC CHECK 0; SAMPLE LIPEMIA CHECK 0; SODIUM 141 MEQ/L (136-147); UREA NITROGEN (BUN) 23 mg/dL (9-23)
[2017-05-21 07:58] LABS: POINT-OF-CARE METER ID UU14117124
[2017-05-21 09:54] LABS: POINT-OF-CARE METER ID UU14117124
[2017-05-21 12:32] LABS: POINT-OF-CARE METER ID UU13113675
[2017-05-21 16:31] LABS: POINT-OF-CARE METER ID UU14188577
[2017-05-21 21:24] LABS: POINT-OF-CARE METER ID UU14188577
[2017-05-22 03:29] VITALS: BP 173/74
[2017-05-22 06:55] LABS: HEMATOCRIT 23.6 % (36.0-46.0); MCH 28.9 PG (29.0-34.0); MCHC 33.9 G/DL (30.0-36.0); MCV 85.2 FL (83-99); MEAN PLAT.VOLUME 10.6 uM^3 (9.5-12.4); PLATELET COUNT 162 K/uL (156-360); RBC DIS.WIDTH-CV 14.8 % (11.8-14.6); RBC DIS.WIDTH-SD 46.4 % (39-53); RED BLOOD COUNT 2.77 M/uL (3.80-5.20); WHITE BLOOD COUNT 7.6 K/uL (4.1-10.2)
[2017-05-22 07:19] LABS: TROP-I INTERPRETATION NEGATIVE; TROPONIN-I 0.03 ng/mL (0.0-0.30)
[2017-05-22 07:25] LABS: ANION GAP 9 MEQ/L (2-14); CHLORIDE 103 MEQ/L (99-109); GFR ESTIMATE (CALCULATED) > 59 mL/min/; SAMPLE HEMOLYSIS CHECK 0; SAMPLE ICTERIC CHECK 0; SAMPLE LIPEMIA CHECK 0; SODIUM 139 MEQ/L (136-147); UREA NITROGEN (BUN) 19 mg/dL (9-23)
[2017-05-22 07:26] LABS: GLUCOSE 141 mg/dL (70-99)
[2017-05-22 08:03] VITALS: BP 188/74
[2017-05-22 16:45] VITALS: BP 158/68
[2017-05-22 19:46] VITALS: BP 139/65
[2017-05-22 23:35] VITALS: BP 151/69
[2017-05-23 04:44] VITALS: BP 170/70
[2017-05-23 06:14] LABS: HEMATOCRIT 23.3 % (36.0-46.0); MCH 28.5 PG (29.0-34.0); MCHC 33.5 G/DL (30.0-36.0); MEAN PLAT.VOLUME 10.4 uM^3 (9.5-12.4); PLATELET COUNT 170 K/uL (156-360); RBC DIS.WIDTH-CV 14.8 % (11.8-14.6); RBC DIS.WIDTH-SD 45.6 % (39-53); RED BLOOD COUNT 2.74 M/uL (3.80-5.20); WHITE BLOOD COUNT 8.2 K/uL (4.1-10.2)
[2017-05-23 06:30] LABS: POINT-OF-CARE METER ID UU14208753
[2017-05-23 07:55] VITALS: BP 171/75
[2017-05-23 08:18] LABS: ANION GAP 9 MEQ/L (2-14); CHLORIDE 103 MEQ/L (99-109); GFR ESTIMATE (CALCULATED) 40 mL/min/; GLUCOSE 159 mg/dL (70-99); POTASSIUM 3.7 MEQ/L (3.7-5.4); SAMPLE HEMOLYSIS CHECK 0; SAMPLE ICTERIC CHECK 0; SAMPLE LIPEMIA CHECK 0; SODIUM 139 MEQ/L (136-147); UREA NITROGEN (BUN) 25 mg/dL (9-23)
[2017-05-23 15:44] VITALS: BP 159/67
[2017-05-23 19:42] LABS: HEMATOCRIT 21.2 % (36.0-46.0); MCV 85.1 FL (83-99)
[2017-05-23 20:26] VITALS: BP 168/73
[2017-05-23 23:53] VITALS: BP 168/74
[2017-05-24 06:44] LABS: POINT-OF-CARE METER ID UU14208753
[2017-05-24 08:36] VITALS: BP 153/67
[2017-05-24 09:02] LABS: HEMATOCRIT 23.6 % (36.0-46.0); MCH 27.9 PG (29.0-34.0); MCHC 32.6 G/DL (30.0-36.0); MCV 85.5 FL (83-99); MEAN PLAT.VOLUME 10.4 uM^3 (9.5-12.4); PLATELET COUNT 229 K/uL (156-360); RBC DIS.WIDTH-CV 14.8 % (11.8-14.6); RBC DIS.WIDTH-SD 46.2 % (39-53); RED BLOOD COUNT 2.76 M/uL (3.80-5.20); WHITE BLOOD COUNT 9.9 K/uL (4.1-10.2)
[2017-05-24 09:22] LABS: ANION GAP 11 MEQ/L (2-14); CHLORIDE 101 MEQ/L (99-109); GFR ESTIMATE (CALCULATED) 48 mL/min/; GLUCOSE 166 mg/dL (70-99); POTASSIUM 3.9 MEQ/L (3.7-5.4); SAMPLE HEMOLYSIS CHECK 0; SAMPLE ICTERIC CHECK 0; SAMPLE LIPEMIA CHECK 0; SODIUM 138 MEQ/L (136-147); UREA NITROGEN (BUN) 26 mg/dL (9-23)
[2017-05-24 11:04] LABS: ALKALINE PHOSPHATASE 108 IU/L (3-129); DIRECT BILIRUBIN 0.1 mg/dL (0.0-0.3)
[2017-05-24 11:16] LABS: TOTAL BILIRUBIN 0.5 MG/DL (0.0-1.0)
[2017-05-24 11:25] LABS: POINT-OF-CARE METER ID UU14208753
[2017-05-24 15:57] VITALS: BP 151/63
[2017-05-24 16:28] LABS: POINT-OF-CARE METER ID UU14208753
[2017-05-24 20:24] LABS: HEMATOCRIT 22.7 % (36.0-46.0); MCV 86.6 FL (83-99)
[2017-05-24 22:21] LABS: POINT-OF-CARE METER ID UU14208753
[2017-05-24 23:58] VITALS: BP 157/70
[2017-05-25 06:28] LABS: POINT-OF-CARE METER ID UU14208753
[2017-05-25 07:32] VITALS: BP 163/80
[2017-05-25 08:26] LABS: RETIC HGB EQUIVALENT 33.2 (28-36); RETICULOCYTE COUNT 1.4 % (0.5-1.8)
[2017-05-25 08:52] LABS: IRON 27 MCG/DL (35-150)
[2017-05-25 08:53] LABS: GLOBULINS 3.4 G/DL (2.3-3.5)
[2017-05-25 10:24] LABS: INTERNAL CONTROL VALID? YES
[2017-05-25 10:59] LABS: POINT-OF-CARE METER ID UU14208753
[2017-05-25 11:08] LABS: HEMATOCRIT 20.9 % (36.0-46.0); MCH 29.4 PG (29.0-34.0); MCHC 34.4 G/DL (30.0-36.0); MCV 85.3 FL (83-99); MEAN PLAT.VOLUME 11.2 uM^3 (9.5-12.4); PLATELET COUNT 220 K/uL (156-360); RBC DIS.WIDTH-CV 14.9 % (11.8-14.6); RBC DIS.WIDTH-SD 45.9 % (39-53); RED BLOOD COUNT 2.45 M/uL (3.80-5.20); WHITE BLOOD COUNT 8.1 K/uL (4.1-10.2)
[2017-05-25 13:26] LABS: ALBUMIN 2.48 G/DL (3.6-4.9); ALBUMIN PERCENT 40.6 % (49.3-67.1); ALPHA-1 GLOBULIN 0.36 G/DL (0.15-0.40); ALPHA-1 PERCENT 5.9 % (2.1-5.5); ALPHA-2 GLOBULIN 1.13 G/DL (0.45-0.85); ALPHA-2 PERCENT 18.6 % (6.2-11.6); BETA PERCENT 13.1 % (8.9-15.8); GAMMA PERCENT 21.8 % (8.6-18.6)
[2017-05-25 16:39] LABS: POINT-OF-CARE METER ID UU14208753
[2017-05-25 16:41] VITALS: BP 175/75
[2017-05-25 20:01] VITALS: BP 172/81
[2017-05-25 22:51] LABS: POINT-OF-CARE METER ID UU14117124
[2017-05-26] VITALS (12 sets, daily range): BP systolic 155–197; BP diastolic 56–81
[2017-05-26 07:23] LABS: HEMATOCRIT 20.6 % (36.0-46.0); MCH 28.5 PG (29.0-34.0); MCHC 33.5 G/DL (30.0-36.0); MCV 85.1 FL (83-99); MEAN PLAT.VOLUME 10.3 uM^3 (9.5-12.4); PLATELET COUNT 225 K/uL (156-360); RBC DIS.WIDTH-CV 14.7 % (11.8-14.6); RBC DIS.WIDTH-SD 45.5 % (39-53); RED BLOOD COUNT 2.42 M/uL (3.80-5.20); WHITE BLOOD COUNT 7.9 K/uL (4.1-10.2)
[2017-05-26 07:37] LABS: ANION GAP 6 MEQ/L (2-14); CHLORIDE 108 MEQ/L (99-109); GFR ESTIMATE (CALCULATED) 53 mL/min/; GLUCOSE 131 mg/dL (70-99); POTASSIUM 4.1 MEQ/L (3.7-5.4); SAMPLE HEMOLYSIS CHECK 0; SAMPLE ICTERIC CHECK 0; SAMPLE LIPEMIA CHECK 0; SODIUM 141 MEQ/L (136-147); UREA NITROGEN (BUN) 26 mg/dL (9-23)
[2017-05-26 07:57] LABS: IFE GEL NO. CAPI
[2017-05-26 17:17] LABS: MCV 85.5 FL (83-99)
[2017-05-26 21:52] LABS: POINT-OF-CARE METER ID UU14117124
[2017-05-27 01:44] LABS: MCV 84.6 FL (83-99)
[2017-05-27 04:22] VITALS: BP 164/66
[2017-05-27 06:28] LABS: POINT-OF-CARE METER ID UU14208753
[2017-05-27 07:39] VITALS: BP 191/81
[2017-05-27 09:15] VITALS: BP 164/56
[2017-05-27 12:07] LABS: POINT-OF-CARE METER ID UU14117124
[2017-05-27 12:10] VITALS: BP 142/63
[2017-05-27 12:34] LABS: MCV 84.7 FL (83-99)
[2017-05-27 16:07] LABS: POINT-OF-CARE METER ID UU14117124
[2017-05-27 16:16] VITALS: BP 158/68
[2017-05-27 22:56] LABS: POINT-OF-CARE METER ID UU14208753
[2017-05-27 23:53] VITALS: BP 157/71
[2017-05-28 04:25] VITALS: BP 160/58
[2017-05-28 05:23] LABS: HEMATOCRIT 31.2 % (36.0-46.0); MCH 28.8 PG (29.0-34.0); MCHC 33.7 G/DL (30.0-36.0); MCV 85.7 FL (83-99); MEAN PLAT.VOLUME 10.1 uM^3 (9.5-12.4); PLATELET COUNT 229 K/uL (156-360); WHITE BLOOD COUNT 5.5 K/uL (4.1-10.2)
[2017-05-28 05:26] LABS: RED BLOOD COUNT 3.64 M/uL (3.80-5.20)
[2017-05-28 06:06] LABS: ANION GAP 7 MEQ/L (2-14); CHLORIDE 108 MEQ/L (99-109); GFR ESTIMATE (CALCULATED) > 59 mL/min/; POTASSIUM 3.9 MEQ/L (3.7-5.4); SAMPLE HEMOLYSIS CHECK 2; SAMPLE ICTERIC CHECK 0; SAMPLE LIPEMIA CHECK 0; SODIUM 142 MEQ/L (136-147); UREA NITROGEN (BUN) 20 mg/dL (9-23)
[2017-05-28 06:08] LABS: GLUCOSE 59 mg/dL (70-99)
[2017-05-28 07:08] LABS: POINT-OF-CARE METER ID UU14188577
[2017-05-28 07:57] LABS: POINT-OF-CARE METER ID UU14208753
[2017-05-28 08:37] LABS: POINT-OF-CARE METER ID UU14208753
[2017-05-28 09:23] VITALS: BP 160/70
[2017-05-28 11:38] LABS: POINT-OF-CARE METER ID UU14208753
[2017-05-28 15:11] VITALS: BP 159/70
[2017-05-28 15:54] LABS: POINT-OF-CARE METER ID UU14107333
[2017-05-28 18:30] LABS: POINT-OF-CARE METER ID UU13113819
[2017-05-28 20:20] VITALS: BP 185/74
[2017-05-28 23:42] VITALS: BP 151/68
[2017-05-29 06:35] LABS: MCH 28.8 PG (29.0-34.0); MCHC 33.1 G/DL (30.0-36.0); MCV 87.1 FL (83-99); MEAN PLAT.VOLUME 10.3 uM^3 (9.5-12.4); PLATELET COUNT 210 K/uL (156-360); RBC DIS.WIDTH-CV 14.9 % (11.8-14.6); RBC DIS.WIDTH-SD 47.2 % (39-53); RED BLOOD COUNT 3.33 M/uL (3.80-5.20); WHITE BLOOD COUNT 5.6 K/uL (4.1-10.2)
[2017-05-29 07:12] LABS: ANION GAP 6 MEQ/L (2-14); CHLORIDE 112 MEQ/L (99-109); GFR ESTIMATE (CALCULATED) > 59 mL/min/; POTASSIUM 4.1 MEQ/L (3.7-5.4); SAMPLE HEMOLYSIS CHECK 0; SAMPLE ICTERIC CHECK 0; SAMPLE LIPEMIA CHECK 0; SODIUM 144 MEQ/L (136-147); UREA NITROGEN (BUN) 16 mg/dL (9-23)
[2017-05-29 07:13] LABS: GLUCOSE 108 mg/dL (70-99)
[2017-05-29 08:28] VITALS: BP 175/72
[2017-05-29] MEDS ORDERED: AMLODIPINE BESY10 MG PO (09:42)
[2017-05-29] MEDS ORDERED: NICOTINE PATCH1 EAC2 TD (09:42)
== END 2017-05-29 13:04 | disposition home or self-care (01) | DRG 570 ==
LOC: EME 14:51 → EDOF 21:28 → 3EAST 21:28 → ENRESERV 21:32 → CANRESERV 22:07 → 3EAST 23:59 → EDOF 23:59 → 3EAST 05-29 13:04
PROVIDERS: Emergency Medicine; Internal Medicine; Internal Medicine Cardiovascular Disease; Internal Medicine Hematology & Oncology; Nurse Practitioner Adult Health; Nurse Practitioner Family; Physician Assistant
DX: L03.311 Cellulitis of abdominal wall (principal); L89.893 Pressure ulcer of other site, stage 3; I96 Gangrene, not elsewhere classified; J90 Pleural effusion, not elsewhere classified; N17.9 Acute kidney failure, unspecified; I13.0 Hypertensive heart and chronic kidney disease with heart failure and stage 1 through stage 4 chronic kidney disease, or unspecified chronic kidney disease; R17 Unspecified jaundice; N18.3 Chronic kidney disease, stage 3 (moderate); B37.2 Candidiasis of skin and nail; E78.5 Hyperlipidemia, unspecified; E65 Localized adiposity; F17.210 Nicotine dependence, cigarettes, uncomplicated; E11.22 Type 2 diabetes mellitus with diabetic chronic kidney disease; I50.9 Heart failure, unspecified; J44.9 Chronic obstructive pulmonary disease, unspecified; D12.5 Benign neoplasm of sigmoid colon; D50.9 Iron deficiency anemia, unspecified; D63.8 Anemia in other chronic diseases classified elsewhere; E11.65 Type 2 diabetes mellitus with hyperglycemia; E63.9 Nutritional deficiency, unspecified; F31.9 Bipolar disorder, unspecified; I25.10 Atherosclerotic heart disease of native coronary artery without angina pectoris; K29.70 Gastritis, unspecified, without bleeding; J84.10 Pulmonary fibrosis, unspecified; R46.0 Very low level of personal hygiene; K44.9 Diaphragmatic hernia without obstruction or gangrene; K64.8 Other hemorrhoids; L02.211 Cutaneous abscess of abdominal wall; Z72.89 Other problems related to lifestyle; I25.2 Old myocardial infarction; Z79.4 Long term (current) use of insulin; Z83.3 Family history of diabetes mellitus; Z85.42 Personal history of malignant neoplasm of other parts of uterus; Z95.1 Presence of aortocoronary bypass graft
CPT/HCPCS: 71020; 71250; 74176; 80048; 80053; 80076; 80202; 82140; 82272; 82607; 82728; 82746; 82948; 83540; 83605; 83883 90; 84134; 84165; 84466; 84484; 85014; 85018; 85027; 85045; 85651; 86140; 86334; 86900; 86901; 86920; 87040; 87070; 87075; 87205; 88305; 88342 TC; 93005; 99281; 99284; J0360; J0696; J0881; J1170; J1650; J1815; J1940; J2250; J2270; J2543; J3010; J3370; J7030; J7042; J7050; J7120; P9016; Q0138; S0020

== ENCOUNTER 2018-01-20 18:48 | Inpatient (IN) | payer OTHER ==
[~2018-01-20] VITALS: Ht 152.4 cm; Wt 59.1 kg
[~2018-01-20 18:48] MED LIST changes: +AMLODIPINE BESY10 MG PO; +LANTUS 3 M100 UNITS1 SC; +METOPROLOL TART50 MG PO; +ZESTRIL10 MG PO
[2018-01-20 20:03] LABS: BASOPHIL (%) 0.2 % (0-1); EOSINOPHIL COUNT 0.1 K/uL (0-0.3); HEMATOCRIT 28.8 % (36.0-46.0); HEMOGLOBIN 10.2 G/DL (11.9-15.5); IMMATURE GRANULOCYTE (%) 0.5 % (0.0-0.7); LYMPHOCYTE (%) 11.3 % (15-42); MCH 30.4 PG (29.0-34.0); MCHC 35.4 G/DL (30.0-36.0); MONOCYTE (%) 10.1 % (3-12); MONOCYTE COUNT 0.9 K/uL (0-0.8); NEUTROPHIL (%) 76.9 % (45-76); NEUTROPHIL COUNT 6.8 K/uL (1.8-6.4); PLATELET COUNT 197 K/uL (156-360); RBC DIS.WIDTH-CV 11.9 % (11.8-14.6); RBC DIS.WIDTH-SD 37.1 % (39-53); RED BLOOD COUNT 3.35 M/uL (3.80-5.20); WHITE BLOOD COUNT 8.8 K/uL (4.1-10.2)
[2018-01-20 20:15] LABS: CHLORIDE 101 mEq/L (99-109); POTASSIUM 4.1 mEq/L (3.7-5.4); SODIUM 137 mEq/L (136-147)
[2018-01-20 20:20] LABS: CREATININE 1.9 mg/dL (0.6-1.3); GFR ESTIMATE (CALCULATED) 28 mL/min/
[2018-01-20 20:21] LABS: UREA NITROGEN (BUN) 63 mg/dL (9-23)
[2018-01-20 20:26] LABS: GLUCOSE 532 mg/dL (70-99)
[2018-01-20 20:30] LABS: APPEARANCE CLOUDY ((CLEAR)); BILIRUBIN NEGATIVE; BLOOD LARGE; COLOR YELLOW ((YELLOW)); GLUCOSE (STRIP) >=500; KETONES NEGATIVE; LEUKOCYTES MODERATE; NITRITE NEGATIVE; PROTEIN (STRIP) 100; SPECIFIC GRAVITY 1.015 (1.000-1.030); UROBILINOGEN 0.2 MG/DL (0.2-1.0)
[2018-01-20 20:52] LABS: BACTERIA 2+ /HPF; EPITHELIAL CELLS RARE /HPF; MUCUS NONE SEEN /LPF; RED BLOOD CELLS 40-50 /HPF (0-5); WHITE BLOOD CELLS TNTC /HPF (0-5)
[2018-01-20 21:24] LABS: CARBON DIOXIDE (BICARBONATE) 27.3 MEQ/L (20-31)
[2018-01-20] MEDS ORDERED: HUMULIN N100 UNIT/2 SC (21:38)
[2018-01-21 04:12] VITALS: BP 141/94
[2018-01-21 06:23] VITALS: BP 141/65
[2018-01-21 09:29] LABS: HEMATOCRIT 26.3 % (36.0-46.0); MCH 29.6 PG (29.0-34.0); MCHC 34.2 G/DL (30.0-36.0); MCV 86.5 FL (83-99); PLATELET COUNT 170 K/uL (156-360); RBC DIS.WIDTH-CV 12.3 % (11.8-14.6); RBC DIS.WIDTH-SD 38.7 % (39-53); RED BLOOD COUNT 3.04 M/uL (3.80-5.20); WHITE BLOOD COUNT 7.6 K/uL (4.1-10.2)
[2018-01-21 09:54] LABS: CHLORIDE 109 MEQ/L (99-109); SODIUM 139 MEQ/L (136-147); UREA NITROGEN (BUN) 51 mg/dL (9-23)
[2018-01-21 09:56] LABS: CREATININE 1.3 MG/DL (0.6-1.3); GFR ESTIMATE (CALCULATED) 44 mL/min/; GLUCOSE 165 mg/dL (70-99)
[2018-01-21 12:18] VITALS: BP 154/69
[2018-01-21 15:59] VITALS: BP 185/79
[2018-01-21 19:18] VITALS: BP 170/74
[2018-01-21 23:23] VITALS: BP 183/75
[2018-01-22 04:15] VITALS: BP 152/64
[2018-01-22 06:47] LABS: BASOPHIL (%) 0.2 % (0-1); EOSINOPHIL (%) 0.3 % (0-5); HEMATOCRIT 27.8 % (36.0-46.0); HEMOGLOBIN 9.4 G/DL (11.9-15.5); IMMATURE GRANULOCYTE (%) 0.6 % (0.0-0.7); LYMPHOCYTE (%) 10.6 % (15-42); LYMPHOCYTE COUNT 1.2 K/uL (1.0-2.8); MCH 29.8 PG (29.0-34.0); MCHC 33.8 G/DL (30.0-36.0); MCV 88.3 FL (83-99); MONOCYTE (%) 13.6 % (3-12); MONOCYTE COUNT 1.5 K/uL (0-0.8); NEUTROPHIL (%) 74.7 % (45-76); NEUTROPHIL COUNT 8.4 K/uL (1.8-6.4); PLATELET COUNT 220 K/uL (156-360); RBC DIS.WIDTH-CV 12.3 % (11.8-14.6); RBC DIS.WIDTH-SD 39.4 % (39-53); RED BLOOD COUNT 3.15 M/uL (3.80-5.20); WHITE BLOOD COUNT 11.2 K/uL (4.1-10.2)
[2018-01-22 07:28] LABS: ALBUMIN 2.4 G/DL (3.2-4.8); CHLORIDE 114 MEQ/L (99-109); CREATININE 1.5 MG/DL (0.6-1.3); GFR ESTIMATE (CALCULATED) 37 mL/min/; PHOSPHORUS 3.9 mg/dL (2.5-4.9); POTASSIUM 3.9 MEQ/L (3.7-5.4); SODIUM 143 MEQ/L (136-147); UREA NITROGEN (BUN) 47 mg/dL (9-23)
[2018-01-22 07:32] VITALS: BP 152/68
[2018-01-22 07:39] LABS: GLUCOSE 50 mg/dL (70-99)
[2018-01-22 12:05] VITALS: BP 170/69
[2018-01-22 14:24] LABS: HEMOGLOBIN A1c (GLYCOHEMOGLOB) 11.6 % (Below 5.7)
[2018-01-22 15:41] VITALS: BP 168/69
[2018-01-22 19:30] VITALS: BP 142/62
[2018-01-23 03:54] VITALS: BP 138/63
[2018-01-23 06:06] LABS: BASOPHIL (%) 0.3 % (0-1); EOSINOPHIL (%) 2.4 % (0-5); EOSINOPHIL COUNT 0.2 K/uL (0-0.3); HEMATOCRIT 25.8 % (36.0-46.0); HEMOGLOBIN 8.7 G/DL (11.9-15.5); IMMATURE GRANULOCYTE (%) 0.6 % (0.0-0.7); LYMPHOCYTE (%) 16.3 % (15-42); LYMPHOCYTE COUNT 1.5 K/uL (1.0-2.8); MCH 29.8 PG (29.0-34.0); MCHC 33.7 G/DL (30.0-36.0); MCV 88.4 FL (83-99); MONOCYTE (%) 12.7 % (3-12); MONOCYTE COUNT 1.1 K/uL (0-0.8); NEUTROPHIL (%) 67.7 % (45-76); PLATELET COUNT 179 K/uL (156-360); RBC DIS.WIDTH-CV 12.1 % (11.8-14.6); RBC DIS.WIDTH-SD 39.1 % (39-53); RED BLOOD COUNT 2.92 M/uL (3.80-5.20); WHITE BLOOD COUNT 8.9 K/uL (4.1-10.2)
[2018-01-23 06:29] LABS: CHLORIDE 111 MEQ/L (99-109); CREATININE 1.6 MG/DL (0.6-1.3); GFR ESTIMATE (CALCULATED) 34 mL/min/; GLUCOSE 157 mg/dL (70-99); POTASSIUM 4.1 MEQ/L (3.7-5.4); SODIUM 141 MEQ/L (136-147); UREA NITROGEN (BUN) 42 mg/dL (9-23)
[2018-01-23 08:05] VITALS: BP 133/63
[2018-01-23 12:35] VITALS: BP 150/70
[2018-01-23 14:58] LABS: UR CREATININE CONCENTRATION 95.8 MG/DL
[2018-01-23 17:08] VITALS: BP 133/62
[2018-01-23 19:49] VITALS: BP 176/72
[2018-01-23 20:51] VITALS: BP 142/58
[2018-01-24] VITALS (7 sets, daily range): BP systolic 130–152; BP diastolic 55–92
[2018-01-24 08:57] LABS: CHLORIDE 113 MEQ/L (99-109); CREATININE 1.8 MG/DL (0.6-1.3); GFR ESTIMATE (CALCULATED) 30 mL/min/; POTASSIUM 4.5 MEQ/L (3.7-5.4); SODIUM 141 MEQ/L (136-147); UREA NITROGEN (BUN) 44 mg/dL (9-23)
[2018-01-24 08:58] LABS: GLUCOSE 76 mg/dL (70-99)
[2018-01-25 03:27] LABS: APPEARANCE CLOUDY ((CLEAR)); BILIRUBIN NEGATIVE; BLOOD MODERATE; COLOR YELLOW ((YELLOW)); GLUCOSE (STRIP) 50; KETONES NEGATIVE; LEUKOCYTES LARGE; NITRITE NEGATIVE; PROTEIN (STRIP) 30; SPECIFIC GRAVITY 1.021 (1.000-1.030); UROBILINOGEN 0.2 MG/DL (0.2-1.0)
[2018-01-25 03:39] LABS: BACTERIA 1+ /HPF; EPITHELIAL CELLS RARE /HPF; MUCUS NONE SEEN /LPF; RED BLOOD CELLS 0-5 /HPF (0-5); WHITE BLOOD CELLS TNTC /HPF (0-5)
[2018-01-25 04:02] VITALS: BP 145/67
[2018-01-25 07:15] VITALS: BP 141/63
[2018-01-25 07:16] LABS: BASOPHIL (%) 0.4 % (0-1); EOSINOPHIL (%) 2.2 % (0-5); EOSINOPHIL COUNT 0.2 K/uL (0-0.3); HEMATOCRIT 25.8 % (36.0-46.0); HEMOGLOBIN 8.8 G/DL (11.9-15.5); IMMATURE GRANULOCYTE (%) 0.6 % (0.0-0.7); LYMPHOCYTE (%) 16.3 % (15-42); LYMPHOCYTE COUNT 1.4 K/uL (1.0-2.8); MCH 29.5 PG (29.0-34.0); MCHC 34.1 G/DL (30.0-36.0); MCV 86.6 FL (83-99); MONOCYTE (%) 11.6 % (3-12); NEUTROPHIL (%) 68.9 % (45-76); NEUTROPHIL COUNT 5.8 K/uL (1.8-6.4); PLATELET COUNT 202 K/uL (156-360); RBC DIS.WIDTH-CV 11.9 % (11.8-14.6); RED BLOOD COUNT 2.98 M/uL (3.80-5.20); WHITE BLOOD COUNT 8.4 K/uL (4.1-10.2)
[2018-01-25 07:41] LABS: ALBUMIN 2.6 G/DL (3.2-4.8); CHLORIDE 112 MEQ/L (99-109); CREATININE 1.9 MG/DL (0.6-1.3); GFR ESTIMATE (CALCULATED) 28 mL/min/; PHOSPHORUS 4.5 mg/dL (2.5-4.9); POTASSIUM 4.3 MEQ/L (3.7-5.4); SODIUM 141 MEQ/L (136-147); UREA NITROGEN (BUN) 47 mg/dL (9-23)
[2018-01-25 07:46] LABS: GLUCOSE 117 mg/dL (70-99)
[2018-01-25 12:12] VITALS: BP 164/71
[2018-01-25 16:06] VITALS: BP 155/66
[2018-01-25 19:26] VITALS: BP 151/67
[2018-01-26] VITALS: BP 159/67
[2018-01-26 04:41] VITALS: BP 150/69
[2018-01-26 07:09] LABS: CHLORIDE 115 MEQ/L (99-109); CREATININE 1.7 MG/DL (0.6-1.3); GFR ESTIMATE (CALCULATED) 32 mL/min/; GLUCOSE 150 mg/dL (70-99); POTASSIUM 4.2 MEQ/L (3.7-5.4); SODIUM 141 MEQ/L (136-147); UREA NITROGEN (BUN) 43 mg/dL (9-23)
[2018-01-26 07:31] VITALS: BP 180/76
[2018-01-26 07:37] LABS: BASOPHIL (%) 0.4 % (0-1); EOSINOPHIL (%) 2.2 % (0-5); EOSINOPHIL COUNT 0.2 K/uL (0-0.3); HEMATOCRIT 27.3 % (36.0-46.0); HEMOGLOBIN 9.3 G/DL (11.9-15.5); LYMPHOCYTE (%) 18.1 % (15-42); LYMPHOCYTE COUNT 1.7 K/uL (1.0-2.8); MCH 29.4 PG (29.0-34.0); MCHC 34.1 G/DL (30.0-36.0); MCV 86.4 FL (83-99); MONOCYTE (%) 12.7 % (3-12); MONOCYTE COUNT 1.2 K/uL (0-0.8); NEUTROPHIL (%) 65.6 % (45-76); PLATELET COUNT 190 K/uL (156-360); RBC DIS.WIDTH-CV 12.1 % (11.8-14.6); RBC DIS.WIDTH-SD 38.4 % (39-53); RED BLOOD COUNT 3.16 M/uL (3.80-5.20); WHITE BLOOD COUNT 9.2 K/uL (4.1-10.2)
[2018-01-26 17:22] VITALS: BP 139/65
[2018-01-26 23:40] VITALS: BP 133/71
[2018-01-27 06:42] LABS: BASOPHIL (%) 0.4 % (0-1); EOSINOPHIL COUNT 0.2 K/uL (0-0.3); HEMATOCRIT 27.4 % (36.0-46.0); HEMOGLOBIN 9.2 G/DL (11.9-15.5); IMMATURE GRANULOCYTE (%) 0.7 % (0.0-0.7); LYMPHOCYTE (%) 13.1 % (15-42); LYMPHOCYTE COUNT 1.4 K/uL (1.0-2.8); MCH 29.6 PG (29.0-34.0); MCHC 33.6 G/DL (30.0-36.0); MCV 88.1 FL (83-99); NEUTROPHIL (%) 73.8 % (45-76); NEUTROPHIL COUNT 7.7 K/uL (1.8-6.4); PLATELET COUNT 217 K/uL (156-360); RBC DIS.WIDTH-CV 12.3 % (11.8-14.6); RBC DIS.WIDTH-SD 39.2 % (39-53); RED BLOOD COUNT 3.11 M/uL (3.80-5.20); WHITE BLOOD COUNT 10.4 K/uL (4.1-10.2)
[2018-01-27 07:02] LABS: CHLORIDE 117 MEQ/L (99-109); CREATININE 1.6 MG/DL (0.6-1.3); GFR ESTIMATE (CALCULATED) 34 mL/min/; GLUCOSE 153 mg/dL (70-99); POTASSIUM 4.5 MEQ/L (3.7-5.4); SODIUM 142 MEQ/L (136-147); UREA NITROGEN (BUN) 39 mg/dL (9-23)
[2018-01-27 07:20] VITALS: BP 180/75
[2018-01-27 15:10] VITALS: BP 135/59
[2018-01-27 23:47] VITALS: BP 135/57
[2018-01-28 08:08] VITALS: BP 124/48
[2018-01-28] MEDS ORDERED: NIFEDIPINE ER60 MG PO (11:42)
[2018-01-28] MEDS ORDERED: FLAGYL500 MG PO (11:43)
[2018-01-28] MEDS ORDERED: CIPRO500 MG PO (11:43)
[2018-01-28] MEDS ORDERED: ENDOCET 5-3251 EACH PO (11:44)
[2018-01-28 14:10] LABS: INTER. NORMALIZED RATIO 1.2
[2018-01-28 14:13] LABS: PTT 29.6 SEC (25-37)
[2018-01-28 17:49] VITALS: BP 153/70
[2018-01-28 22:31] VITALS: BP 144/68
[2018-01-29] VITALS (12 sets, daily range): BP systolic 102–171; BP diastolic 40–79
[2018-01-29 06:11] LABS: BASOPHIL (%) 0.2 % (0-1); EOSINOPHIL (%) 0.2 % (0-5); HEMATOCRIT 18.3 % (36.0-46.0); IMMATURE GRANULOCYTE (%) 0.7 % (0.0-0.7); LYMPHOCYTE (%) 17.7 % (15-42); LYMPHOCYTE COUNT 2.2 K/uL (1.0-2.8); MCH 30.6 PG (29.0-34.0); MCHC 34.4 G/DL (30.0-36.0); MCV 88.8 FL (83-99); MONOCYTE (%) 9.5 % (3-12); MONOCYTE COUNT 1.2 K/uL (0-0.8); NEUTROPHIL (%) 71.7 % (45-76); NEUTROPHIL COUNT 8.9 K/uL (1.8-6.4); RBC DIS.WIDTH-CV 12.8 % (11.8-14.6); RBC DIS.WIDTH-SD 39.8 % (39-53); WHITE BLOOD COUNT 12.4 K/uL (4.1-10.2)
[2018-01-29 06:14] LABS: HEMOGLOBIN 6.3 G/DL (11.9-15.5); PLATELET COUNT 287 K/uL (156-360); RED BLOOD COUNT 2.06 M/uL (3.80-5.20)
[2018-01-29 06:33] LABS: CHLORIDE 108 MEQ/L (99-109); GFR ESTIMATE (CALCULATED) 25 mL/min/; GLUCOSE 160 mg/dL (70-99); POTASSIUM 4.9 MEQ/L (3.7-5.4); SODIUM 136 MEQ/L (136-147)
[2018-01-29 06:34] LABS: CREATININE 2.1 MG/DL (0.6-1.3); UREA NITROGEN (BUN) 62 mg/dL (9-23)
[2018-01-29 12:57] LABS: BASOPHIL (%) 0.2 % (0-1); EOSINOPHIL (%) 0.6 % (0-5); EOSINOPHIL COUNT 0.1 K/uL (0-0.3); HEMATOCRIT 18.1 % (36.0-46.0); IMMATURE GRANULOCYTE (%) 0.8 % (0.0-0.7); LYMPHOCYTE (%) 13.1 % (15-42); LYMPHOCYTE COUNT 1.9 K/uL (1.0-2.8); MCH 30.2 PG (29.0-34.0); MCHC 33.7 G/DL (30.0-36.0); MCV 89.6 FL (83-99); MONOCYTE (%) 8.6 % (3-12); MONOCYTE COUNT 1.2 K/uL (0-0.8); NEUTROPHIL (%) 76.7 % (45-76); PLATELET COUNT 269 K/uL (156-360); RBC DIS.WIDTH-CV 13.1 % (11.8-14.6); RBC DIS.WIDTH-SD 40.1 % (39-53); RED BLOOD COUNT 2.02 M/uL (3.80-5.20); WHITE BLOOD COUNT 14.3 K/uL (4.1-10.2)
[2018-01-29 12:59] LABS: HEMOGLOBIN 6.1 G/DL (11.9-15.5)
[2018-01-29 13:13] LABS: HEMATOCRIT 17.9 % (36.0-46.0); MCV 89.5 FL (83-99)
[2018-01-29 13:14] LABS: HEMOGLOBIN 6.1 G/DL (11.9-15.5)
[2018-01-29 14:51] LABS: ALBUMIN 2.6 G/DL (3.2-4.8)
[2018-01-29 19:38] LABS: STOOL OCCULT BLD 1ST SPECIMEN NEGATIVE
[2018-01-29 21:08] LABS: HEMATOCRIT 23.6 % (36.0-46.0); HEMOGLOBIN 7.9 G/DL (11.9-15.5); MCV 85.8 FL (83-99)
[2018-01-30 06:42] LABS: BASOPHIL (%) 0.2 % (0-1); EOSINOPHIL (%) 0.1 % (0-5); HEMATOCRIT 27.1 % (36.0-46.0); HEMOGLOBIN 9.2 G/DL (11.9-15.5); LYMPHOCYTE (%) 6.8 % (15-42); LYMPHOCYTE COUNT 1.3 K/uL (1.0-2.8); MCH 29.6 PG (29.0-34.0); MCHC 33.9 G/DL (30.0-36.0); MCV 87.1 FL (83-99); MONOCYTE (%) 9.4 % (3-12); MONOCYTE COUNT 1.8 K/uL (0-0.8); NEUTROPHIL (%) 82.5 % (45-76); NEUTROPHIL COUNT 15.5 K/uL (1.8-6.4); NRBC (%) 0.1 /100 WBC (0-0); PLATELET COUNT 323 K/uL (156-360); RBC DIS.WIDTH-CV 14.2 % (11.8-14.6); RBC DIS.WIDTH-SD 42.8 % (39-53); WHITE BLOOD COUNT 18.8 K/uL (4.1-10.2)
[2018-01-30 06:45] LABS: RED BLOOD COUNT 3.11 M/uL (3.80-5.20)
[2018-01-30 07:07] LABS: CHLORIDE 108 MEQ/L (99-109); GFR ESTIMATE (CALCULATED) 26 mL/min/; GLUCOSE 234 mg/dL (70-99); POTASSIUM 5.2 MEQ/L (3.7-5.4); SODIUM 136 MEQ/L (136-147); UREA NITROGEN (BUN) 80 mg/dL (9-23)
[2018-01-30 07:31] VITALS: BP 138/64
[2018-01-30 12:42] LABS: HEMATOCRIT 25.1 % (36.0-46.0); HEMOGLOBIN 8.2 G/DL (11.9-15.5); MCV 88.7 FL (83-99)
[2018-01-30 16:00] VITALS: BP 138/64
[2018-01-30 23:15] VITALS: BP 139/55
[2018-01-31] VITALS (8 sets, daily range): BP systolic 137–150; BP diastolic 63–69
[2018-01-31 06:19] LABS: BASOPHIL (%) 0.2 % (0-1); EOSINOPHIL (%) 0.6 % (0-5); EOSINOPHIL COUNT 0.1 K/uL (0-0.3); HEMATOCRIT 22.4 % (36.0-46.0); HEMOGLOBIN 7.3 G/DL (11.9-15.5); IMMATURE GRANULOCYTE (%) 0.9 % (0.0-0.7); LYMPHOCYTE (%) 13.4 % (15-42); LYMPHOCYTE COUNT 1.9 K/uL (1.0-2.8); MCH 29.1 PG (29.0-34.0); MCHC 32.6 G/DL (30.0-36.0); MCV 89.2 FL (83-99); MONOCYTE (%) 11.4 % (3-12); MONOCYTE COUNT 1.6 K/uL (0-0.8); NEUTROPHIL (%) 73.5 % (45-76); NEUTROPHIL COUNT 10.2 K/uL (1.8-6.4); PLATELET COUNT 269 K/uL (156-360); RBC DIS.WIDTH-CV 14.7 % (11.8-14.6); RED BLOOD COUNT 2.51 M/uL (3.80-5.20); WHITE BLOOD COUNT 13.9 K/uL (4.1-10.2)
[2018-01-31 06:47] LABS: CHLORIDE 113 MEQ/L (99-109); CREATININE 1.6 MG/DL (0.6-1.3); GFR ESTIMATE (CALCULATED) 34 mL/min/; GLUCOSE 134 mg/dL (70-99); MAGNESIUM 1.9 mg/dl (1.3-2.7); POTASSIUM 4.4 MEQ/L (3.7-5.4); SODIUM 138 MEQ/L (136-147); UREA NITROGEN (BUN) 74 mg/dL (9-23)
[2018-01-31 17:04] LABS: BASOPHIL (%) 0.3 % (0-1); EOSINOPHIL (%) 0.6 % (0-5); EOSINOPHIL COUNT 0.1 K/uL (0-0.3); HEMATOCRIT 27.7 % (36.0-46.0); HEMOGLOBIN 9.2 G/DL (11.9-15.5); IMMATURE GRANULOCYTE (%) 0.8 % (0.0-0.7); LYMPHOCYTE (%) 11.4 % (15-42); LYMPHOCYTE COUNT 1.4 K/uL (1.0-2.8); MCH 29.7 PG (29.0-34.0); MCHC 33.2 G/DL (30.0-36.0); MCV 89.4 FL (83-99); MONOCYTE (%) 10.2 % (3-12); MONOCYTE COUNT 1.3 K/uL (0-0.8); NEUTROPHIL (%) 76.7 % (45-76); NEUTROPHIL COUNT 9.5 K/uL (1.8-6.4); PLATELET COUNT 262 K/uL (156-360); RBC DIS.WIDTH-CV 14.6 % (11.8-14.6); RBC DIS.WIDTH-SD 45.8 % (39-53); WHITE BLOOD COUNT 12.4 K/uL (4.1-10.2)
[2018-01-31 17:28] LABS: IRON 38 MCG/DL (35-150); TRANSFERRIN (TIBC) 205.4 mg/dL (215-380); TRANSFERRIN SATUR. 19 % (20-55)
[2018-01-31 17:46] LABS: FERRITIN 87 NG/ML (10-291)
[2018-01-31 17:51] LABS: FOLIC ACID (FOLATE) 12.8 NG/ML (5.0-22.0)
[2018-02-01 06:50] LABS: BASOPHIL (%) 0.4 % (0-1); EOSINOPHIL (%) 1.5 % (0-5); EOSINOPHIL COUNT 0.2 K/uL (0-0.3); HEMATOCRIT 27.9 % (36.0-46.0); HEMOGLOBIN 9.2 G/DL (11.9-15.5); IMMATURE GRANULOCYTE (%) 0.8 % (0.0-0.7); LYMPHOCYTE (%) 19.5 % (15-42); LYMPHOCYTE COUNT 1.9 K/uL (1.0-2.8); MCH 29.7 PG (29.0-34.0); MONOCYTE (%) 12.7 % (3-12); MONOCYTE COUNT 1.2 K/uL (0-0.8); NEUTROPHIL (%) 65.1 % (45-76); NEUTROPHIL COUNT 6.4 K/uL (1.8-6.4); PLATELET COUNT 253 K/uL (156-360); WHITE BLOOD COUNT 9.8 K/uL (4.1-10.2)
[2018-02-01 07:11] LABS: CHLORIDE 116 MEQ/L (99-109); CREATININE 1.3 MG/DL (0.6-1.3); GFR ESTIMATE (CALCULATED) 44 mL/min/; GLUCOSE 75 mg/dL (70-99); MAGNESIUM 2.1 mg/dl (1.3-2.7); POTASSIUM 4.4 MEQ/L (3.7-5.4); SODIUM 141 MEQ/L (136-147); UREA NITROGEN (BUN) 58 mg/dL (9-23)
[2018-02-01 07:32] VITALS: BP 176/72
[2018-02-01 08:51] LABS: ERTH.SED.RATE 27 MM/HR (0-30)
[2018-02-01] MEDS ORDERED: NOVOLIN N100 UNITS/ SC (12:48)
[2018-02-01] MEDS ORDERED: CIPROFLOXACIN500 M1 PO (12:48)
[2018-02-01] MEDS ORDERED: METRONIDAZOLE500 MG PO (12:48)
[2018-02-01 15:32] VITALS: BP 146/66
== END 2018-02-01 18:17 | disposition home health service (06) | DRG 571 ==
LOC: DELPENDDIS → EME 18:48 → EDOF 01-21 01:24 → 5SOUTH 01-21 01:24 → ENRESERV 01-21 01:25 → EDOF 01-21 03:11 → 5SOUTH 01-21 03:15 → ENPENDDIS 01-28 11:59 → 5SOUTH 02-01 18:17
PROVIDERS: Hospitalist; Internal Medicine Nephrology; Physician Assistant
PROC: 0JB80ZZ Excision of Abdomen Subcutaneous Tissue and Fascia, Open Approach (ICD-10-PCS; principal; 2018-01-27)
PROC: 30233N1 Transfusion of Nonautologous Red Blood Cells into Peripheral Vein, Percutaneous Approach (ICD-10-PCS; 2018-01-29)
DX: L03.311 Cellulitis of abdominal wall (principal); N17.9 Acute kidney failure, unspecified; N39.0 Urinary tract infection, site not specified; B96.20 Unspecified Escherichia coli [E. coli] as the cause of diseases classified elsewhere; B96.89 Other specified bacterial agents as the cause of diseases classified elsewhere; I13.0 Hypertensive heart and chronic kidney disease with heart failure and stage 1 through stage 4 chronic kidney disease, or unspecified chronic kidney disease; I50.32 Chronic diastolic (congestive) heart failure; N18.3 Chronic kidney disease, stage 3 (moderate); E11.22 Type 2 diabetes mellitus with diabetic chronic kidney disease; R79.1 Abnormal coagulation profile; D62 Acute posthemorrhagic anemia; E11.65 Type 2 diabetes mellitus with hyperglycemia; E11.649 Type 2 diabetes mellitus with hypoglycemia without coma; E11.622 Type 2 diabetes mellitus with other skin ulcer; L98.499 Non-pressure chronic ulcer of skin of other sites with unspecified severity; B37.2 Candidiasis of skin and nail; E65 Localized adiposity; M79.89 Other specified soft tissue disorders; T50.1X5A Adverse effect of loop [high-ceiling] diuretics, initial encounter; T46.4X5A Adverse effect of angiotensin-converting-enzyme inhibitors, initial encounter; T39.395A Adverse effect of other nonsteroidal anti-inflammatory drugs [NSAID], initial encounter; E78.5 Hyperlipidemia, unspecified; E88.09 Other disorders of plasma-protein metabolism, not elsewhere classified; I25.10 Atherosclerotic heart disease of native coronary artery without angina pectoris; J43.9 Emphysema, unspecified; N12 Tubulo-interstitial nephritis, not specified as acute or chronic; T36.0X5A Adverse effect of penicillins, initial encounter; D53.9 Nutritional anemia, unspecified; F17.210 Nicotine dependence, cigarettes, uncomplicated; Z91.19 Patient's noncompliance with other medical treatment and regimen; I25.2 Old myocardial infarction; Z95.1 Presence of aortocoronary bypass graft; Z79.4 Long term (current) use of insulin; Z79.82 Long term (current) use of aspirin; Z85.42 Personal history of malignant neoplasm of other parts of uterus; Z90.710 Acquired absence of both cervix and uterus
CPT/HCPCS: 71045; 71250; 74176; 76770; 78582; 80048; 80069; 81003; 82010; 82040; 82272; 82570; 82607; 82668 90; 82728; 82746; 82803; 82948; 83036; 83540; 83605; 83735; 83880; 83935; 84156; 84466; 85014; 85018; 85025; 85025 91; 85027; 85379; 85610; 85651; 85730; 86850; 86900; 86901; 86920; 87040; 87070; 87075; 87076; 87077; 87086; 87185; 87186; 87205; 87493; 88305; 89190; 93005; 93306; 93970; 94799; 97530 GP; 99281; 99285; A6260; A9539; A9540; J0131; J0696; J0780; J1100; J1170; J1644; J1815; J1885; J2250; J2405; J2543; J2710; J3010; J3370; J7030; J7050; J7643; P9016; S0020; S0028

== ENCOUNTER 2018-03-24 03:07 | Emergency (ER) | payer OTHER ==
[~2018-03-24] VITALS: Ht 172.7 cm; Wt 60.2 kg
[~2018-03-24 03:07] MED LIST changes: +CIPROFLOXACIN500 M1 PO; +FLAGYL500 MG PO; +HUMULIN N100 UNIT/2 SC; +METRONIDAZOLE500 MG PO; +NIFEDIPINE ER60 MG PO; +NOVOLIN N100 UNITS/ SC
[2018-03-24 03:45] LABS: BASOPHIL (%) 0.3 % (0-1); EOSINOPHIL (%) 2.2 % (0-5); EOSINOPHIL COUNT 0.2 K/uL (0-0.3); HEMOGLOBIN 8.4 G/DL (11.9-15.5); IMMATURE GRANULOCYTE (%) 0.4 % (0.0-0.7); LYMPHOCYTE (%) 15.7 % (15-42); LYMPHOCYTE COUNT 1.2 K/uL (1.0-2.8); MCH 28.6 PG (29.0-34.0); MCHC 32.3 G/DL (30.0-36.0); MCV 88.4 FL (83-99); MONOCYTE (%) 12.6 % (3-12); NEUTROPHIL (%) 68.8 % (45-76); NEUTROPHIL COUNT 5.4 K/uL (1.8-6.4); PLATELET COUNT 170 K/uL (156-360); RBC DIS.WIDTH-CV 14.7 % (11.8-14.6); RBC DIS.WIDTH-SD 47.3 % (39-53); RED BLOOD COUNT 2.94 M/uL (3.80-5.20); WHITE BLOOD COUNT 7.8 K/uL (4.1-10.2)
[2018-03-24 03:56] LABS: CHLORIDE 104 mEq/L (99-109); POTASSIUM 4.1 mEq/L (3.7-5.4); SODIUM 138 mEq/L (136-147)
[2018-03-24 03:58] LABS: GLUCOSE 234 mg/dL (70-99); TOTAL PROTEIN 6.9 g/dL (6.4-8.3)
[2018-03-24 04:00] LABS: TOTAL BILIRUBIN 0.4 mg/dL (0.0-1.0)
[2018-03-24 04:01] LABS: ALKALINE PHOSPHATASE 192 IU/L (3-129)
[2018-03-24 04:02] LABS: CREATININE 1.5 mg/dL (0.6-1.3); GFR ESTIMATE (CALCULATED) 37 mL/min/
[2018-03-24 04:03] LABS: AST (GOT) 18 IU/L (2-34); UREA NITROGEN (BUN) 43 mg/dL (9-23)
[2018-03-24 04:05] LABS: ALT (GPT) 17 IU/L (3-49)
[2018-03-24 04:58] LABS: APPEARANCE CLEAR ((CLEAR)); BILIRUBIN NEGATIVE; BLOOD SMALL; COLOR COLORLESS ((YELLOW)); GLUCOSE (STRIP) 50; KETONES NEGATIVE; LEUKOCYTES TRACE; NITRITE NEGATIVE; PROTEIN (STRIP) 100; SPECIFIC GRAVITY 1.006 (1.000-1.030); UROBILINOGEN 0.2 MG/DL (0.2-1.0)
[2018-03-24 05:04] LABS: BACTERIA NONE SEEN /HPF; EPITHELIAL CELLS RARE /HPF; HYALINE CASTS 0-5 /LPF; MUCUS NONE SEEN /LPF; UCUL ADDED? NO; WHITE BLOOD CELLS 0-5 /HPF (0-5)
[2018-03-24] MEDS ORDERED: BACTRIM,SEPT1 TABLET PO (05:57)
[2018-03-24] MEDS ORDERED: ANECREAM30 GM TP (06:03)
[2018-03-24 06:29] VITALS: BP 210/113
== END 2018-03-24 06:29 | disposition home or self-care (01) ==
LOC: EME → EDBD 03:07 → EME 06:29
PROVIDERS: Emergency Medicine
DX: S31.40XA Unspecified open wound of vagina and vulva, initial encounter (principal); J45.909 Unspecified asthma, uncomplicated; F31.9 Bipolar disorder, unspecified; E78.5 Hyperlipidemia, unspecified; I10 Essential (primary) hypertension; F17.200 Nicotine dependence, unspecified, uncomplicated; I25.2 Old myocardial infarction; Z95.1 Presence of aortocoronary bypass graft; Z85.42 Personal history of malignant neoplasm of other parts of uterus; Z90.710 Acquired absence of both cervix and uterus; Z90.49 Acquired absence of other specified parts of digestive tract
CPT/HCPCS: 72192; 80053; 81003; 85025; 99281; 99285

== ENCOUNTER 2018-04-20 09:16 | Emergency (ER) | payer OTHER ==
[~2018-04-20] VITALS: Ht 152.4 cm; Wt 67.5 kg
[~2018-04-20 09:16] MED LIST changes: +ANECREAM30 GM TP
[2018-04-20 10:56] LABS: BASOPHIL (%) 0.4 % (0-1); EOSINOPHIL (%) 1.2 % (0-5); EOSINOPHIL COUNT 0.1 K/uL (0-0.3); HEMATOCRIT 24.7 % (36.0-46.0); HEMOGLOBIN 8.3 G/DL (11.9-15.5); IMMATURE GRANULOCYTE (%) 0.2 % (0.0-0.7); LYMPHOCYTE (%) 20.6 % (15-42); LYMPHOCYTE COUNT 1.2 K/uL (1.0-2.8); MCH 29.4 PG (29.0-34.0); MCHC 33.6 G/DL (30.0-36.0); MCV 87.6 FL (83-99); MONOCYTE (%) 12.8 % (3-12); MONOCYTE COUNT 0.7 K/uL (0-0.8); NEUTROPHIL (%) 64.8 % (45-76); NEUTROPHIL COUNT 3.7 K/uL (1.8-6.4); PLATELET COUNT 136 K/uL (156-360); RBC DIS.WIDTH-CV 14.2 % (11.8-14.6); RBC DIS.WIDTH-SD 45.6 % (39-53); RED BLOOD COUNT 2.82 M/uL (3.80-5.20); WHITE BLOOD COUNT 5.6 K/uL (4.1-10.2)
[2018-04-20 11:06] LABS: ALBUMIN 3.1 g/dL (3.2-4.8); CHLORIDE 106 mEq/L (99-109); POTASSIUM 4.8 mEq/L (3.7-5.4); SODIUM 140 mEq/L (136-147)
[2018-04-20 11:08] LABS: GLUCOSE 114 mg/dL (70-99); TOTAL PROTEIN 6.7 g/dL (6.4-8.3)
[2018-04-20 11:10] LABS: TOTAL BILIRUBIN 0.4 mg/dL (0.0-1.0)
[2018-04-20 11:12] LABS: ALKALINE PHOSPHATASE 158 IU/L (3-129); CREATININE 1.4 mg/dL (0.6-1.3); GFR ESTIMATE (CALCULATED) 40 mL/min/
[2018-04-20 11:13] LABS: UREA NITROGEN (BUN) 53 mg/dL (9-23)
[2018-04-20 11:14] LABS: AST (GOT) 12 IU/L (2-34)
[2018-04-20 11:15] LABS: ALT (GPT) 8 IU/L (3-49)
[2018-04-20 14:38] VITALS: BP 190/75
== END 2018-04-20 14:40 | disposition home or self-care (01) ==
LOC: EME 09:16
PROVIDERS: Emergency Medicine
DX: L76.22 Postprocedural hemorrhage of skin and subcutaneous tissue following other procedure (principal); Z98.890 Other specified postprocedural states; Z48.01 Encounter for change or removal of surgical wound dressing; I10 Essential (primary) hypertension; E78.5 Hyperlipidemia, unspecified; J45.909 Unspecified asthma, uncomplicated; I25.2 Old myocardial infarction; F17.200 Nicotine dependence, unspecified, uncomplicated; Z86.79 Personal history of other diseases of the circulatory system; Z95.1 Presence of aortocoronary bypass graft; Z85.42 Personal history of malignant neoplasm of other parts of uterus; Z90.710 Acquired absence of both cervix and uterus; Z90.49 Acquired absence of other specified parts of digestive tract
CPT/HCPCS: 80053; 85025; 99281; 99285